=== PATIENT | female | born 1965 | race Caucasian/White ===

== ENCOUNTER 2016-10-19 13:18 | Emergency (ER) | payer BC, OTHER ==
[2016-10-19] MEDS ORDERED: IPRATROPIUM-ALBUTEROL 3 ML NEB INHALATION STA (13:34)
[2016-10-19 13:39] VITALS: RESP 18
--- NOTE | 2016-10-19 13:50 | ED ---
General Adult HPI - General Chief complaint: Shortness of Breath Stated complaint: Abnormal EKG Time Seen by Provider: 10/19/16 13:22 Source: patient Mode of arrival: EMS - History of Present Illness Initial comments: This is a 51-year-old female with a history of lupus and SVT who was presents emergency department from her primary doctor's office for abnormal EKG. The patient states that she has been battling an upper respiratory infection for the last week and a half. She was just started on azithromycin approximately 4 days ago. She states that she has had a persistent cough and chest discomfort that she describes as musculoskeletal and worse with coughing and movement. She states that she's had persistent nasal congestion as well. She went to her primary doctor for further evaluation and they did an EKG and was concerned about her T waves and sent her into the emergency department. The patient states she does not have any palpitations. No lightheadedness. She denies any radiation of the chest pain states that it's directly substernal. She admits to some throat swelling and sore throat. No nausea or vomiting or diarrhea. No other complaints. The patient denies any recent travel or surgeries. No history of PE or DVT. She is not short of breath with exertion. - Related Data Home Medications Medication Instructions Recorded Confirmed DULoxetine HCL [Cymbalta] 60 mg PO DAILY 10/09/15 10/09/15 Ibuprofen [Motrin] 800 mg PO 5XD PRN 10/09/15 10/09/15 tiZANidine HCL [Tizanidine HCl] 4 mg PO BID PRN 10/09/15 10/09/15 Previous Rx's Medication Instructions Recorded HYDROcodone/APAP 5-325MG [[place] 1 tab PO Q6HR PRN #20 tab 10/09/15 5-325] guaiFENesin-Coden 100-10MG/5ML 10 ml PO Q6HR PRN #120 ml 10/19/16 [Robitussin AC] Allergies Allergy/AdvReac Type Severity Reaction Status Date / Time erythromycin base Allergy Rash/Hives Verified 10/09/15 21:10 hepatitis B immune globulin Allergy Unknown Verified 10/09/15 21:10 Childhood morphine Allergy Rash/Hives Verified 10/09/15 21:10 Mushroom Allergy Anaphylaxis Verified 10/09/15 21:10 Review of Systems ROS Statement: Those systems with pertinent positive or pertinent negative responses have been documented in the HPI. ROS Other: All systems not noted in ROS Statement are negative. Past Medical History Past Medical History: Fibromyalgia, Hypertension, Osteoarthritis (OA), Supraventricular Tachycardia (SVT) Additional Past Medical History / Comment(s): lupus History of Any Multi-Drug Resistant Organisms: None Reported Past Surgical History: Cholecystectomy Additional Past Surgical History / Comment(s): arthroscopic knee Past Psychological History: Depression Smoking Status: Former smoker Past Alcohol Use History: None Reported Past Drug Use History: Marijuana General Exam - General Exam Comments Initial Comments: Constitutional: Awake alert Appears comfortable Head: Normocephalic atraumatic Eyes: no conjunctival injection No scleral icterus EOMI ENT: Oropharynx is mildly erythematous without exudate, TMs clear bilaterally, no mucosal edema in the nasal passages. Neck: No JVD Supple Heart: Regular rate rhythm normal S1-S2 no murmurs Lungs: Clear to auscultation bilaterally No wheezing No rales Abdomen: Soft nondistended nontender Extremities: Non edematous DP pulses intact Radial pulses intact Neuro: A&Ox3 No focal neurologic deficits Psych: Appropriate mood and affect Course Vital Signs 10/19/16 10/19/16 10/19/16 13:26 13:49 14:00 Temperature 97.7 F Pulse Rate 58 L 52 L 61 Respiratory 18 Rate Blood Pressure 130/65 O2 Sat by Pulse 96 Oximetry EKG Findings - EKG Comments: EKG Findings:: EKG showing sinus bradycardia with a rate of 54. No abnormal ST segment changes or T-wave inversions. QTC is 424. Other intervals are normal. No ectopy. Medical Decision Making - Medical Decision Making Physical 51-year-old female who presents emergency department for cough, chest pain, and upper respiratory symptoms. Chest x-ray did not show any evidence for pneumonia or any problems with the Claudio mediastinum. The patient was given a breathing treatment with minimal improvement. She states that the chest pain is much worse with coughing and moving. Also worse with palpation. At this time I felt the patient is suffering from some chest wall discomfort and bronchitis. I did give her one dose of Decadron in the ER because she does not tolerate prednisone or Medrol. She has an inhaler at home. She also has taken a course of antibiotics. She can follow-up with her primary doctor for further evaluation. Going to give her some cough medicine as well for home. - Lab Data Result diagrams: 10/19/16 13:47 10/19/16 13:47 Lab Results 10/19/16 10/19/16 10/19/16 Range/Units 13:47 13:47 13:47 WBC 13.2 H (3.8-10.6) k/uL RBC 5.65 H (3.80-5.40) m/uL Hgb 16.6 H (11.4-16.0) gm/dL Hct 48.2 H (34.0-46.0) % MCV 85.4 (80.0-100.0) fL MCH 29.4 (25.0-35.0) pg MCHC 34.4 (31.0-37.0) g/dL RDW 14.2 (11.5-15.5) % Plt Count 293 (150-450) k/uL Neutrophils % 72 % Lymphocytes % 20 % Monocytes % 5 % Eosinophils % 2 % Basophils % 1 % Neutrophils # 9.5 H (1.3-7.7) k/uL Lymphocytes # 2.6 (1.0-4.8) k/uL Monocytes # 0.7 (0-1.0) k/uL Eosinophils # 0.3 (0-0.7) k/uL Basophils # 0.1 (0-0.2) k/uL Sodium 142 (137-145) mmol/L Potassium 4.1 (3.5-5.1) mmol/L Chloride 108 H (98-107) mmol/L Carbon Dioxide 23 (22-30) mmol/L Anion Gap 11 mmol/L BUN 16 (7-17) mg/dL Creatinine 0.60 (0.52-1.04) mg/dL Est GFR (MDRD) Af Amer >60 (>60 ml/min/1.73 sqM) Est GFR (MDRD) Non-Af >60 (>60 ml/min/1.73 sqM) Glucose 95 (74-99) mg/dL Calcium 9.0 (8.4-10.2) mg/dL Magnesium 1.9 (1.6-2.3) mg/dL Total Bilirubin 0.5 (0.2-1.3) mg/dL AST 64 H (14-36) U/L ALT 103 H (9-52) U/L Alkaline Phosphatase 149 H (38-126) U/L Troponin I <0.012 (0.000-0.034) ng/mL Total Protein 6.9 (6.3-8.2) g/dL Albumin 3.8 (3.5-5.0) g/dL Disposition Clinical Impression: Bronchitis, Viral syndrome Disposition: HOME SELF-CARE Condition: Stable Instructions: Bronchiolitis (ED) Prescriptions: guaiFENesin-Coden 100-10MG/5ML [Robitussin AC] 10 ml PO Q6HR PRN #120 ml PRN Reason: Cough Referrals: Rolan Laguerre MD [Primary Care Provider] - 1-2 days
[2016-10-19 13:56] LABS: Basophils # (A) 0.1 k/uL (0-0.2); Basophils % (A) 1 %; CH 29.5; CHCM 34.7; Eosinophils # (A) 0.3 k/uL (0-0.7); Eosinophils % (A) 2 %; HCT 48.2 % (34.0-46.0); HDW 2.83; HGB 16.6 gm/dL (11.4-16.0); Luc # (Auto) 0.19; Luc % (Auto) 1; Lymphocytes # (A) 2.6 k/uL (1.0-4.8); Lymphocytes % (A) 20 %; MCH 29.4 pg (25.0-35.0); MCHC 34.4 g/dL (31.0-37.0); MCV 85.4 fL (80.0-100.0); Mean Platelet Volume 7.1; Monocytes # (A) 0.7 k/uL (0-1.0); Monocytes % (A) 5 %; Neutrophils # (A) 9.5 k/uL (1.3-7.7); Neutrophils % (A) 72 %; RBC 5.65 m/uL (3.80-5.40); RDW 14.2 % (11.5-15.5); WBC 13.2 k/uL (3.8-10.6); WBC (Perox) 12.79
[2016-10-19 14:07] LABS: ALT 103 U/L (9-52); AST 64 U/L (14-36); Alkaline Phosphatase 149 U/L (38-126); Anion Gap 11 mmol/L; Blood Urea Nitrogen 16 mg/dL (7-17); Carbon Dioxide 23 mmol/L (22-30); Chloride 108 mmol/L (98-107); Glucose 95 mg/dL (74-99); Magnesium 1.9 mg/dL (1.6-2.3); Non-African American GFR(MDRD) >60 (>60 ml/min/1.73 sqM); Potassium 4.1 mmol/L (3.5-5.1); Sodium 142 mmol/L (137-145); Total Bilirubin 0.5 mg/dL (0.2-1.3); Total Protein 6.9 g/dL (6.3-8.2)
--- NOTE | 2016-10-19 14:34 | XR ---
EXAMINATION TYPE: XR chest 2V DATE OF EXAM: 10/19/2016 COMPARISON: NONE HISTORY: Shortness of breath TECHNIQUE: Frontal and lateral views of the chest are obtained. FINDINGS: Scattered senescent parenchymal changes noted. Hyperinflation compatible with COPD. No evidence for infiltrate. No evidence for atelectasis. Heart size is stable. Mediastinal structures are stable and grossly unremarkable. No evidence for hilar prominence. Degenerative changes dorsal spine. IMPRESSION: 1. No evidence for acute pulmonary disease.
[2016-10-19] MEDS ORDERED: DEXAMETHASONE SOD PHOSPHATE 4 MG/ML 1 ML VIAL IV STA (14:48)
[2016-10-19 15:01] VITALS: BP 121/58; PULSE 56; TEMP 97.4
== END 2016-10-19 15:06 | disposition home or self-care (01) ==
LOC: EC 13:18
DX: J40 Bronchitis, not specified as acute or chronic (principal); B34.9 Viral infection, unspecified; R07.89 Other chest pain; I10 Essential (primary) hypertension; F32.9 Major depressive disorder, single episode, unspecified; Z87.891 Personal history of nicotine dependence; Z79.899 Other long term (current) drug therapy; Z88.1 Allergy status to other antibiotic agents; Z88.5 Allergy status to narcotic agent; Z91.018 Allergy to other foods; Z88.8 Allergy status to other drugs, medicaments and biological substances
CPT/HCPCS: 36415; 94640; 93005; 80053; 83735; 84484; 85025; 71020; 99285; 96374; J1100

== ENCOUNTER → 2017-01-14 | Outpatient (CLI) | payer OTHER ==
--- NOTE | 2017-01-14 09:17 | US ---
EXAMINATION TYPE: US abdomen limited DATE OF EXAM: 01/14/2017 COMPARISON: NONE CLINICAL HISTORY: M54.5 low back pain. Patient states has multiple lower back palpables x years and n otices pain with pressure; recent 55 lb weight loss At right lower back hypoechoic, oval, lobular areas are noted at patient's palpable and largest area = 3.5 x 3.7 x 1.2cm. At left lower back other palpable, lobular, oval hypoechoic area is also noted = 4.7 x 5.1 x 1.6cm. IMPRESSION: 1. Nonspecific mass as discussed above appears to be solid. Recommend MRI.
== END ==
LOC: RADUSWWP 08:17
PROVIDERS: ATTEND Family Medicine
DX: R22.2 Localized swelling, mass and lump, trunk (principal)

== ENCOUNTER 2017-03-11 10:58 | Emergency (ER) | payer OTHER ==
[2017-03-11] MEDS ORDERED: PANTOPRAZOLE 40 MG/10 ML VIAL IVP STA (11:20)
[2017-03-11] MEDS ORDERED: ONDANSETRON 4 MG/2 ML VIAL IVP STA (11:20)
[2017-03-11] MEDS ORDERED: RX INFO: IV CONTRAST WAS GIVEN 1 EACH MISC MISCELLANE PRN (11:20)
[2017-03-11] MEDS ORDERED: SODIUM CHLORIDE 0.9% 1,000 ML IV STA (11:20)
[2017-03-11] MEDS ORDERED: SODIUM CHLORIDE 0.9% 500 ML IV STA (11:20)
[2017-03-11] MEDS: MORPHINE SULFATE 2 MG/ML SYRINGE IV STA ×2 (11:43→11:44)
[2017-03-11] MEDS ORDERED: KETOROLAC 30 MG/ML 1 ML VIAL IVP STA (12:00)
[2017-03-11 12:03] LABS: Basophils # (A) 0.1 k/uL (0-0.2); Basophils % (A) 1 %; Eosinophils # (A) 0.2 k/uL (0-0.7); Eosinophils % (A) 2 %; HCT 45.1 % (34.0-46.0); Lymphocytes # (A) 0.4 k/uL (1.0-4.8); Lymphocytes % (A) 4 %; MCH 28.9 pg (25.0-35.0); MCHC 33.4 g/dL (31.0-37.0); MCV 86.6 fL (80.0-100.0); Mean Platelet Volume 7.8; Monocytes # (A) 0.5 k/uL (0-1.0); Monocytes % (A) 4 %; Neutrophils # (A) 9.6 k/uL (1.3-7.7); Neutrophils % (A) 89 %; Platelet Count 276 k/uL (150-450); RDW 15.3 % (11.5-15.5); WBC 10.8 k/uL (3.8-10.6)
[2017-03-11 12:21] LABS: ALT 50 U/L (9-52); AST 37 U/L (14-36); Albumin 3.9 g/dL (3.5-5.0); Alkaline Phosphatase 100 U/L (38-126); Amylase 56 U/L (30-110); Anion Gap 10 mmol/L; Blood Urea Nitrogen 16 mg/dL (7-17); Calcium 9.7 mg/dL (8.4-10.2); Carbon Dioxide 25 mmol/L (22-30); Chloride 105 mmol/L (98-107); Glucose 129 mg/dL (74-99); Lipase 111 U/L (23-300); Potassium 3.5 mmol/L (3.5-5.1); Sodium 140 mmol/L (137-145); Total Bilirubin 0.8 mg/dL (0.2-1.3); Total Protein 7.5 g/dL (6.3-8.2)
[2017-03-11 12:56] LABS: Appearance,Urine Clear (Clear); Bilirubin,Urine Negative (Negative); Blood,Urine Negative (Negative); Color,Urine Yellow; Glucose,Urine (UA) Negative (Negative); Granular Casts,Urine 4 /lpf (0); Hyaline Casts,Urine 1 /lpf (0-2); Ketones,Urine Negative (Negative); Leukocyte Esterase,Urine Small (Negative); Mucus,Urine Many /hpf; Nitrite,Urine Negative (Negative); Protein,Urine Trace (Negative); RBC,Urine 1 /hpf (0-5); Specific Gravity,Urine 1.014 (1.001-1.035); Squamous Epithelial Cell,Urine 6 /hpf (0-4); Urobilinogen,Urine <2.0 mg/dL (<2.0); WBC,Urine 4 /hpf (0-5)
--- NOTE | 2017-03-11 13:08 | ED ---
General Adult HPI - General Chief complaint: Abdominal Pain Stated complaint: Abdominal pain Time Seen by Provider: 03/11/17 11:12 Source: patient, RN notes reviewed, old records reviewed Mode of arrival: ambulatory Limitations: no limitations - History of Present Illness Initial comments: This is a 51-year-old female to the ER for evaluation today. This patient presents today for evaluation regarding this to develop pain, patient has history of gallbladder surgery, history ago abdominal disease. History of chronic abdominal pain and currently being treated for ulcers. No fevers. Patient severe nausea no vomiting. Severe epigastric abdominal.. Patient is no family members with similar symptoms, no modifying factors for pain at home.0 - Related Data Home Medications Medication Instructions Recorded Confirmed Alogliptin Benzoate [Alogliptin] 25 mg PO DAILY 10/19/16 03/11/17 Atorvastatin [Lipitor] 20 mg PO DAILY 10/19/16 03/11/17 metFORMIN HCL [Glucophage] 1,000 mg PO BID 10/19/16 03/11/17 Albuterol Inhaler [Ventolin Hfa 2 puff INHALATION RT-Q6H PRN 03/11/17 03/11/17 Inhaler] Escitalopram [Lexapro] 10 mg PO DAILY 03/11/17 03/11/17 Famotidine 40 mg PO DAILY 03/11/17 03/11/17 Losartan/Hydrochlorothiazide 1 tab PO DAILY 03/11/17 03/11/17 [Losartan-Hctz 100-25 mg Tab] Omeprazole 40 mg PO DAILY 03/11/17 03/11/17 Allergies Allergy/AdvReac Type Severity Reaction Status Date / Time erythromycin base Allergy Rash/Hives Verified 03/11/17 11:13 hepatitis B immune globulin Allergy Unknown Verified 03/11/17 11:13 Childhood morphine Allergy Rash/Hives Verified 03/11/17 11:13 Mushroom Allergy Anaphylaxis Verified 03/11/17 11:13 Review of Systems ROS Statement: Those systems with pertinent positive or pertinent negative responses have been documented in the HPI. ROS Other: All systems not noted in ROS Statement are negative. Past Medical History Past Medical History: Diabetes Mellitus, Fibromyalgia, Hypertension, Osteoarthritis (OA), Supraventricular Tachycardia (SVT) Additional Past Medical History / Comment(s): lupus History of Any Multi-Drug Resistant Organisms: None Reported Past Surgical History: Cholecystectomy, Orthopedic Surgery Additional Past Surgical History / Comment(s): arthroscopic knee Past Psychological History: Depression Smoking Status: Former smoker Past Alcohol Use History: None Reported Past Drug Use History: Marijuana General Exam Limitations: no limitations General appearance: alert, in no apparent distress, obese Head exam: Present: atraumatic, normocephalic, normal inspection Eye exam: Present: normal appearance, PERRL, EOMI. Absent: scleral icterus, conjunctival injection, periorbital swelling ENT exam: Present: normal exam, mucous membranes moist Neck exam: Present: normal inspection. Absent: tenderness, meningismus, lymphadenopathy Respiratory exam: Present: normal lung sounds bilaterally. Absent: respiratory distress, wheezes, rales, rhonchi, stridor Cardiovascular Exam: Present: regular rate, normal rhythm, normal heart sounds. Absent: systolic murmur, diastolic murmur, rubs, gallop, clicks GI/Abdominal exam: Present: soft, normal bowel sounds. Absent: distended, tenderness, guarding, rebound, rigid Extremities exam: Present: normal inspection, full ROM, normal capillary refill. Absent: tenderness, pedal edema, joint swelling, calf tenderness Back exam: Present: normal inspection Neurological exam: Present: alert, oriented X3, CN II-XII intact Psychiatric exam: Present: normal affect, normal mood Skin exam: Present: warm, dry, intact, normal color. Absent: rash Course Vital Signs 03/11/17 10:59 Temperature 97.4 F L Pulse Rate 95 Respiratory 18 Rate Blood Pressure 143/92 O2 Sat by Pulse 95 Oximetry - Reevaluation(s) Reevaluation #1: 03/11/17 13:07 Patient does have adequate pain control Medical Decision Making - Medical Decision Making 51 female ER for evaluation regarding abdominal pain, severe epigastric abdominal pain. Patient has pain control here in the ER lab work and CT are negative. Patient will continue to follow up on an outpatient basis regarding ulcer, likely need of upper and lower GI - Lab Data Result diagrams: 03/11/17 11:48 03/11/17 11:48 Lab Results 03/11/17 03/11/17 03/11/17 Range/Units 11:48 11:48 11:48 WBC 10.8 H (3.8-10.6) k/uL RBC 5.20 (3.80-5.40) m/uL Hgb 15.0 (11.4-16.0) gm/dL Hct 45.1 (34.0-46.0) % MCV 86.6 (80.0-100.0) fL MCH 28.9 (25.0-35.0) pg MCHC 33.4 (31.0-37.0) g/dL RDW 15.3 (11.5-15.5) % Plt Count 276 (150-450) k/uL Neutrophils % 89 % Lymphocytes % 4 % Monocytes % 4 % Eosinophils % 2 % Basophils % 1 % Neutrophils # 9.6 H (1.3-7.7) k/uL Lymphocytes # 0.4 L (1.0-4.8) k/uL Monocytes # 0.5 (0-1.0) k/uL Eosinophils # 0.2 (0-0.7) k/uL Basophils # 0.1 (0-0.2) k/uL Sodium 140 (137-145) mmol/L Potassium 3.5 (3.5-5.1) mmol/L Chloride 105 (98-107) mmol/L Carbon Dioxide 25 (22-30) mmol/L Anion Gap 10 mmol/L BUN 16 (7-17) mg/dL Creatinine 0.80 (0.52-1.04) mg/dL Est GFR (MDRD) Af Amer >60 (>60 ml/min/1.73 sqM) Est GFR (MDRD) Non-Af >60 (>60 ml/min/1.73 sqM) Glucose 129 H (74-99) mg/dL Plasma Lactic Acid Juan Jose 1.1 (0.7-2.0) mmol/L Calcium 9.7 (8.4-10.2) mg/dL Total Bilirubin 0.8 (0.2-1.3) mg/dL AST 37 H (14-36) U/L ALT 50 (9-52) U/L Alkaline Phosphatase 100 (38-126) U/L Total Protein 7.5 (6.3-8.2) g/dL Albumin 3.9 (3.5-5.0) g/dL Amylase 56 (30-110) U/L Lipase 111 (23-300) U/L Urine Color Urine Appearance (Clear) Urine pH (5.0-8.0) Ur Specific [place] (1.001-1.035) Urine Protein (Negative) Urine Glucose (UA) (Negative) Urine Ketones (Negative) Urine Blood (Negative) Urine Nitrite (Negative) Urine Bilirubin (Negative) Urine Urobilinogen (<2.0) mg/dL Ur Leukocyte Esterase (Negative) Urine RBC (0-5) /hpf Urine WBC (0-5) /hpf Ur Squamous Epith Cells (0-4) /hpf Hyaline Casts (0-2) /lpf Granular Casts (0) /lpf Urine Mucus (None) /hpf 03/11/17 Range/Units 12:39 WBC (3.8-10.6) k/uL RBC (3.80-5.40) m/uL Hgb (11.4-16.0) gm/dL Hct (34.0-46.0) % MCV (80.0-100.0) fL MCH (25.0-35.0) pg MCHC (31.0-37.0) g/dL RDW (11.5-15.5) % Plt Count (150-450) k/uL Neutrophils % % Lymphocytes % % Monocytes % % Eosinophils % % Basophils % % Neutrophils # (1.3-7.7) k/uL Lymphocytes # (1.0-4.8) k/uL Monocytes # (0-1.0) k/uL Eosinophils # (0-0.7) k/uL Basophils # (0-0.2) k/uL Sodium (137-145) mmol/L Potassium (3.5-5.1) mmol/L Chloride (98-107) mmol/L Carbon Dioxide (22-30) mmol/L Anion Gap mmol/L BUN (7-17) mg/dL Creatinine (0.52-1.04) mg/dL Est GFR (MDRD) Af Amer (>60 ml/min/1.73 sqM) Est GFR (MDRD) Non-Af (>60 ml/min/1.73 sqM) Glucose (74-99) mg/dL Plasma Lactic Acid Juan Jose (0.7-2.0) mmol/L Calcium (8.4-10.2) mg/dL Total Bilirubin (0.2-1.3) mg/dL AST (14-36) U/L ALT (9-52) U/L Alkaline Phosphatase (38-126) U/L Total Protein (6.3-8.2) g/dL Albumin (3.5-5.0) g/dL Amylase (30-110) U/L Lipase (23-300) U/L Urine Color Yellow Urine Appearance Clear (Clear) Urine pH 7.0 (5.0-8.0) Ur Specific [place] 1.014 (1.001-1.035) Urine Protein Trace H (Negative) Urine Glucose (UA) Negative (Negative) Urine Ketones Negative (Negative) Urine Blood Negative (Negative) Urine Nitrite Negative (Negative) Urine Bilirubin Negative (Negative) Urine Urobilinogen <2.0 (<2.0) mg/dL Ur Leukocyte Esterase Small H (Negative) Urine RBC 1 (0-5) /hpf Urine WBC 4 (0-5) /hpf Ur Squamous Epith Cells 6 H (0-4) /hpf Hyaline Casts 1 (0-2) /lpf Granular Casts 4 (0) /lpf Urine Mucus Many H (None) /hpf - Radiology Data Radiology results: report reviewed (CT abdomen and pelvis is negative), image reviewed Disposition Clinical Impression: Abdominal pain Disposition: HOME SELF-CARE Condition: Good Instructions: Abdominal Pain (ED) Referrals: Rolan Laguerre MD [Primary Care Provider] - 1-2 days
--- NOTE | 2017-03-11 14:12 | CT ---
EXAMINATION TYPE: CT abdomen pelvis w con DATE OF EXAM: 03/11/2017 COMPARISON: NONE HISTORY: Abdominal pain CT DLP: 1767 mGycm Automated exposure control for dose reduction was used. TECHNIQUE: Helical acquisition of images from the lung bases through the pelvis have been completed. CONTRAST: Performed without Oral Contrast and with IV Contrast, patient injected with 100 ml mL of Omnipaque 30 0. FINDINGS: LUNG BASES: Subpleural pulmonary nodule present in the right lower lobe axial image 9 measuring 6 to 7 mm with smooth margins. There is no pleural or pericardial effusion. AORTA: No significant abnormality is appreciated. LIVER/GB: Patient is post cholecystectomy, surgical clip present anterior to the left lobe of the servando er, the liver shows low attenuation likely due to hepatic steatosis and liver is enlarged PANCREAS: No significant abnormality is seen. SPLEEN: No significant abnormality is seen. ADRENALS: No significant abnormality is seen. KIDNEYS: Nonobstructive upper pole left renal calcification measures 9 mm. No ureteral calcification is evident. REPRODUCTIVE ORGANS: No significant abnormality is seen. Surgical clip present in the cul-de-sac. BOWEL: No significant abnormality is seen. There is a small umbilical hernia present containing fat. No evident appendicitis. FREE AIR: No Free Air visible. ASCITES: None visible. PELVIC ADENOPATHY: None visualized. RETROPERITONEAL ADENOPATHY: No Retroperitoneal Adenopathy visible. URINARY BLADDER: No significant abnormality is seen. OSSEOUS STRUCTURES: Degenerative disc disease noted in the lower lumbar spine, is vacuum phenomenon is present at L4-5, L5-S1. IMPRESSION: POSTOP CHANGES. NONOBSTRUCTIVE LEFT NEPHROLITHIASIS. HEPATIC STEATOSIS. INDETERMINATE PULMONARY NODUL E, FOLLOW-UP RECOMMENDED IN 6-12 MONTHS. ADDITIONAL FINDINGS ABOVE.
[2017-03-11] MEDS ORDERED: HYDROcodone/APAP 5-325MG 1 EACH TAB PO STA (14:29)
[2017-03-11 14:38] VITALS: BP 128/68; PULSE 69; RESP 16; TEMP 97.8
== END 2017-03-11 14:37 | disposition home or self-care (01) ==
LOC: EC 10:58
DX: R10.13 Epigastric pain (principal); R11.0 Nausea; K25.9 Gastric ulcer, unspecified as acute or chronic, without hemorrhage or perforation; I10 Essential (primary) hypertension; E11.9 Type 2 diabetes mellitus without complications; F32.9 Major depressive disorder, single episode, unspecified; E66.9 Obesity, unspecified; Z87.891 Personal history of nicotine dependence; Z79.84 Long term (current) use of oral hypoglycemic drugs; Z79.899 Other long term (current) drug therapy; Z88.1 Allergy status to other antibiotic agents; Z88.5 Allergy status to narcotic agent; Z88.7 Allergy status to serum and vaccine; Z91.018 Allergy to other foods; Z90.49 Acquired absence of other specified parts of digestive tract; Z68.31 Body mass index [BMI] 31.0-31.9, adult; Z53.8 Procedure and treatment not carried out for other reasons
CPT/HCPCS: 36415; 80053; 82150; 83605; 83690; 85025; 81001; 87086; 74177; 99284; 96374; 96375 ×2; 96361 ×3; Q9967; J2405; J1885; C9113

== ENCOUNTER 2017-03-22 08:44 | Emergency (ER) | payer OTHER ==
[2017-03-22 08:53] VITALS: BP 131/81; PULSE 61; RESP 20; TEMP 97.9
[2017-03-22] MEDS ORDERED: methylPREDNISolone SOD SUCCI 125 MG/2 ML VIAL IM STA (09:07)
[2017-03-22] MEDS ORDERED: hydrOXYzine HCL 25 MG TAB PO STA (09:07)
--- NOTE | 2017-03-22 09:11 | ED ---
General Adult HPI - General Chief complaint: Skin/Abscess/Foreign Body Stated complaint: Rash Time Seen by Provider: 03/22/17 09:02 Source: patient, RN notes reviewed Mode of arrival: ambulatory Limitations: no limitations - History of Present Illness Initial comments: 51-year-old female presents to the emergency department with a chief complaint of an itchy red rash. Patient had this rash for the past 2-3 days. It originally started on Tuesday. She went to the urgent care and they prescribed her Medrol Dosepak but she cannot take that she has not had any steroids. She states she's had only been taking Benadryl. She states when she takes steroids and Effexor differently she did have a shot of steroids but she can't take any oral steroids. She states she is here because she continues to have the rash does not seem to be improving. She denies any new soaps or detergents at home. She denies any. She states her facial swelling that she had when it initially started is gone but she continues to have this rash. She is being tested for viral syndrome but she just needs something to help with itching and a steroid injection to help hopefully improve her symptoms. She denies any fever chills with this. She states she has had some mild congestion which she is on Singulair for. Patient denies any recent fever, chills, shortness of breath, chest pain, back pain, abdominal pain, nausea vomiting, numbness or tingling, dysuria or hematuria, constipation or diarrhea, headaches or visual changes, or any other current symptoms. - Related Data Home Medications Medication Instructions Recorded Confirmed Alogliptin Benzoate [Alogliptin] 25 mg PO DAILY 10/19/16 03/22/17 Atorvastatin [Lipitor] 20 mg PO DAILY 10/19/16 03/22/17 metFORMIN HCL [Glucophage] 1,000 mg PO BID 10/19/16 03/22/17 Albuterol Inhaler [Ventolin Hfa 2 puff INHALATION RT-Q6H PRN 03/11/17 03/22/17 Inhaler] Escitalopram [Lexapro] 10 mg PO DAILY 03/11/17 03/22/17 Famotidine 40 mg PO DAILY 03/11/17 03/22/17 Losartan/Hydrochlorothiazide 1 tab PO DAILY 03/11/17 03/22/17 [Losartan-Hctz 100-25 mg Tab] Omeprazole 40 mg PO DAILY 03/11/17 03/22/17 Previous Rx's Medication Instructions Recorded HYDROcodone/APAP 5-325MG [[place] 1 tab PO Q6HR PRN #30 tab 03/11/17 5-325] Ondansetron Odt [Zofran ODT] 4 mg PO Q8HR PRN #30 tab 03/11/17 hydrOXYzine HCL [Atarax] 25 mg PO TID PRN #20 tab 03/22/17 Allergies Allergy/AdvReac Type Severity Reaction Status Date / Time erythromycin base Allergy Rash/Hives Verified 03/22/17 09:00 hepatitis B immune globulin Allergy Unknown Verified 03/22/17 09:00 Childhood morphine Allergy Rash/Hives Verified 03/22/17 09:00 Mushroom Allergy Anaphylaxis Verified 03/22/17 09:00 Review of Systems ROS Statement: Those systems with pertinent positive or pertinent negative responses have been documented in the HPI. ROS Other: All systems not noted in ROS Statement are negative. Past Medical History Past Medical History: Diabetes Mellitus, Fibromyalgia, Hypertension, Osteoarthritis (OA), Supraventricular Tachycardia (SVT) Additional Past Medical History / Comment(s): lupus History of Any Multi-Drug Resistant Organisms: None Reported Past Surgical History: Cholecystectomy, Orthopedic Surgery Additional Past Surgical History / Comment(s): arthroscopic knee Past Psychological History: Depression Smoking Status: Former smoker Past Alcohol Use History: None Reported Past Drug Use History: Marijuana General Exam Limitations: no limitations General appearance: alert, in no apparent distress Neck exam: Present: normal inspection. Absent: tenderness, meningismus, lymphadenopathy Respiratory exam: Present: normal lung sounds bilaterally. Absent: respiratory distress, wheezes, rales, rhonchi, stridor Cardiovascular Exam: Present: regular rate, normal rhythm, normal heart sounds. Absent: systolic murmur, diastolic murmur, rubs, gallop, clicks Extremities exam: Present: normal inspection, full ROM, normal capillary refill. Absent: tenderness, pedal edema, joint swelling, calf tenderness Back exam: Present: normal inspection Neurological exam: Present: alert, oriented X3 Psychiatric exam: Present: normal affect, normal mood Skin exam: Present: warm, dry, intact, rash, urticaria (Diffuse) Course Vital Signs 03/22/17 08:50 Temperature 97.9 F Pulse Rate 61 Respiratory 20 Rate Blood Pressure 131/81 O2 Sat by Pulse 99 Oximetry Medical Decision Making - Medical Decision Making 51-year-old female presents emergency department with what appears to be an urticaria. At this time we discussed investigating the source. We did discuss with her shot of Solu-Medrol. She cannot take oral steroids for home she states. We will also start her on Atarax to help with itching. We did discuss assisted. We discussed follow-up return parameters all questions. Patient family stated the Dimitris management this plan. All questions have been answered. This time the patient will be discharged. Disposition Clinical Impression: Urticaria Disposition: HOME SELF-CARE Condition: Stable Instructions: Urticaria (ED) Additional Instructions: Please use medication as discussed. Please follow up with family doctor if symptoms have not improved over the next two days. Please return to the emergency room if your symptoms increase or worsen or for any other concerns. Prescriptions: hydrOXYzine HCL [Atarax] 25 mg PO TID PRN #20 tab PRN Reason: Itching Referrals: Rolan Laguerre MD [Primary Care Provider] - 1-2 days Time of Disposition: 09:10
== END 2017-03-22 09:27 | disposition home or self-care (01) ==
LOC: EC 08:44
DX: L50.9 Urticaria, unspecified (principal); R09.81 Nasal congestion; E11.9 Type 2 diabetes mellitus without complications; I10 Essential (primary) hypertension; F32.9 Major depressive disorder, single episode, unspecified; Z87.891 Personal history of nicotine dependence; Z79.84 Long term (current) use of oral hypoglycemic drugs; Z79.899 Other long term (current) drug therapy; Z88.5 Allergy status to narcotic agent; Z88.1 Allergy status to other antibiotic agents; Z91.018 Allergy to other foods; Z88.8 Allergy status to other drugs, medicaments and biological substances
CPT/HCPCS: 99282; 96372; J2930

== ENCOUNTER → 2018-02-03 | Outpatient (CLI) | payer OTHER ==
--- NOTE | 2018-02-03 07:45 | US ---
EXAMINATION TYPE: US liver DATE OF EXAM: 02/03/2018 COMPARISON: NONE CLINICAL HISTORY: K80.50 CALCULUS BILE DUCT W/O CHOLANGITIS W/O OBSTRUCTION. Cholecystectomy 2011. Na usea for 1 month. RUQ pain EXAM MEASUREMENTS: Liver Length: 20.0 cm Gallbladder Wall: Surgically absent CBD: 0.4 cm Right Kidney: 11.9 x 4.0 x 4.6 cm Pancreas: Obscured by bowel gas Liver: enlarged . There is increased echogenicity of the hepatic parenchyma with diminished visualiz ation of the portal triads most commonly relating to hepatic steatosis and limiting evaluation for un derlying hepatic masses. Gallbladder: Surgically absent Evidence for sonographic Soriano's sign: no CBD: appears wnl as visualized Right Kidney: no evidence of hydronephrosis or mass IMPRESSION: 1. Surgical absence of the gallbladder. No intrahepatic or extrahepatic biliary ductal dilatation. 2. Findings suggesting mild degree hepatic steatosis. Correlate with liver function tests.
== END | disposition home or self-care (01) ==
LOC: RADUSWWP 06:55
PROVIDERS: ATTEND Family Medicine
DX: Z09 Encounter for follow-up examination after completed treatment for conditions other than malignant neoplasm (principal); Z90.49 Acquired absence of other specified parts of digestive tract; Z87.19 Personal history of other diseases of the digestive system
CPT/HCPCS: 76705

== ENCOUNTER 2019-04-05 16:31 | Inpatient (IN) | payer MEDICARE, OTHER ==
[2019-04-05] MEDS ORDERED: PANTOPRAZOLE 40 MG/10 ML VIAL IVP STA (17:20)
[2019-04-05] MEDS ORDERED: SODIUM CHLORIDE 0.9% 500 ML 500 ML IV STA (17:20)
[2019-04-05] MEDS ORDERED: SODIUM CHLORIDE 0.9% 1,000 ML IV STA (17:20)
[2019-04-05] MEDS ORDERED: ONDANSETRON 4 MG/2 ML VIAL IVP STA (17:20)
--- NOTE | 2019-04-05 17:20 | ED ---
Abdominal Pain HPI - General Chief Complaint: Abdominal Pain Stated Complaint: NVD, Abd pain Time Seen by Provider: 04/05/19 17:06 Source: patient, RN notes reviewed, old records reviewed Mode of arrival: ambulatory Limitations: no limitations - History of Present Illness Initial Comments: This is a 53-year-old female DF for evaluation she spoke them today for evaluation regards to persistent nausea vomiting and diarrhea with abdominal pain. Patient is having foul-smelling yellowish diarrhea patient has consented DF for evaluation of abdominal pain for primary care patient presents with persistent abdominal pain significant diarrhea. No fevers MD Complaint: abdominal pain -: days(s) Location: diffuse, epigastric, suprapubic Radiation: epigastric, suprapubic Migration to: no migration Severity: moderate Severity scale (1-10): 7 Quality: stabbing, sharp Consistency: constant Improves With: nothing Worsens With: nothing Associated Symptoms: nausea, vomiting, diarrhea - Related Data Home Medications Medication Instructions Recorded Confirmed Alogliptin Benzoate [Alogliptin] 25 mg PO DAILY 10/19/16 03/15/18 metFORMIN HCL [Glucophage] 500 mg PO BID 10/19/16 03/15/18 Albuterol Inhaler [Ventolin Hfa 2 puff INHALATION RT-Q6H PRN 03/11/17 03/15/18 Inhaler] Escitalopram [Lexapro] 10 mg PO DAILY 03/11/17 03/15/18 Famotidine 40 mg PO DAILY 03/11/17 03/15/18 Cholecalciferol [Vitamin D3] 5,000 unit PO DAILY 03/15/18 03/15/18 Losartan/Hydrochlorothiazide 1 each PO DAILY 03/15/18 03/15/18 [Hyzaar 100-25 Tablet] Metoprolol Succinate [Toprol XL] 100 mg PO DAILY 03/15/18 03/15/18 Allergies Allergy/AdvReac Type Severity Reaction Status Date / Time erythromycin base Allergy Rash/Hives Verified 04/05/19 16:33 hepatitis B immune globulin Allergy Unknown Verified 04/05/19 16:33 Childhood morphine Allergy Rash/Hives Verified 04/05/19 16:33 Mushroom Allergy Anaphylaxis Verified 04/05/19 16:33 Review of Systems ROS Statement: Those systems with pertinent positive or pertinent negative responses have been documented in the HPI. ROS Other: All systems not noted in ROS Statement are negative. Past Medical History Past Medical History: Diabetes Mellitus, Fibromyalgia, Hyperlipidemia, Hypertension, Osteoarthritis (OA), Supraventricular Tachycardia (SVT) Additional Past Medical History / Comment(s): lupus, OCCASIONAL . SVT History of Any Multi-Drug Resistant Organisms: None Reported Past Surgical History: Cholecystectomy, Orthopedic Surgery, Tubal Ligation Additional Past Surgical History / Comment(s): arthroscopic left knee Past Anesthesia/Blood Transfusion Reactions: Motion Sickness Past Psychological History: Depression Smoking Status: Former smoker Past Alcohol Use History: None Reported Past Drug Use History: Marijuana - Past Family History Mother Family Medical History: Cancer Father Family Medical History: Cancer General Exam Limitations: no limitations General appearance: alert, in no apparent distress Head exam: Present: atraumatic, normocephalic, normal inspection Eye exam: Present: normal appearance, PERRL, EOMI. Absent: scleral icterus, conjunctival injection, periorbital swelling ENT exam: Present: normal exam, mucous membranes moist Neck exam: Present: normal inspection. Absent: tenderness, meningismus, lymphadenopathy Respiratory exam: Present: normal lung sounds bilaterally. Absent: respiratory distress, wheezes, rales, rhonchi, stridor Cardiovascular Exam: Present: regular rate, normal rhythm, normal heart sounds. Absent: systolic murmur, diastolic murmur, rubs, gallop, clicks GI/Abdominal exam: Present: soft, tenderness (epigastric), normal bowel sounds. Absent: distended, guarding, rebound, rigid Extremities exam: Present: normal inspection, full ROM, normal capillary refill. Absent: tenderness, pedal edema, joint swelling, calf tenderness Back exam: Present: normal inspection Neurological exam: Present: alert, oriented X3, CN II-XII intact Psychiatric exam: Present: normal affect, normal mood Skin exam: Present: warm, dry, intact, normal color. Absent: rash Course Vital Signs 04/05/19 04/05/19 16:34 20:15 Temperature 98.3 F 97.4 F L Pulse Rate 72 60 Respiratory 18 18 Rate Blood Pressure 144/85 132/70 O2 Sat by Pulse 98 96 Oximetry - Reevaluation(s) Reevaluation #1: 04/05/19 17:20 medical record is reviewed - Consultations Consultation #1: spoke w Dr Jaspal vasquez for admission Medical Decision Making - Medical Decision Making 53 female DF for evaluation of persistent nausea vomiting and diarrhea patient does have significant diarrheal illness, patient will be admitted for symptom atically therapy, we'll await C. diff result - Lab Data Result diagrams: 04/05/19 17:29 04/05/19 17:29 Lab Results 04/05/19 04/05/19 04/05/19 Range/Units 17:29 17:29 17:29 WBC 10.2 (3.8-10.6) k/uL RBC 5.90 H (3.80-5.40) m/uL Hgb 16.8 H (11.4-16.0) gm/dL Hct 49.0 H (34.0-46.0) % MCV 82.9 (80.0-100.0) fL MCH 28.5 (25.0-35.0) pg MCHC 34.3 (31.0-37.0) g/dL RDW 14.4 (11.5-15.5) % Plt Count 275 (150-450) k/uL Neutrophils % 78 % Lymphocytes % 10 % Monocytes % 6 % Eosinophils % 1 % Basophils % 2 % Neutrophils # 8.0 H (1.3-7.7) k/uL Lymphocytes # 1.0 (1.0-4.8) k/uL Monocytes # 0.6 (0-1.0) k/uL Eosinophils # 0.1 (0-0.7) k/uL Basophils # 0.2 (0-0.2) k/uL Sodium 138 (137-145) mmol/L Potassium 3.6 (3.5-5.1) mmol/L Chloride 105 (98-107) mmol/L Carbon Dioxide 21 L (22-30) mmol/L Anion Gap 12 mmol/L BUN 18 H (7-17) mg/dL Creatinine 0.70 (0.52-1.04) mg/dL Est GFR (CKD-EPI)AfAm >90 (>60 ml/min/1.73 sqM) Est GFR (CKD-EPI)NonAf >90 (>60 ml/min/1.73 sqM) Glucose 111 H (74-99) mg/dL Plasma Lactic Acid Juan Jose 1.1 (0.7-2.0) mmol/L Calcium 9.3 (8.4-10.2) mg/dL Total Bilirubin 0.9 (0.2-1.3) mg/dL AST 62 H (14-36) U/L ALT 54 H (4-34) U/L Alkaline Phosphatase 103 (38-126) U/L Total Protein 7.6 (6.3-8.2) g/dL Albumin 4.1 (3.5-5.0) g/dL Amylase 51 (30-110) U/L Lipase 128 (23-300) U/L - Radiology Data Radiology results: report reviewed (CT abd pelvis negative diarrheal illness), image reviewed Disposition Clinical Impression: Abdominal pain, Nausea and vomiting, Gastroenteritis Narrative: r/o C Diff Disposition: ADMITTED IP TO THIS [facility] Condition: Fair Is patient prescribed a controlled substance at d/c from ED?: No Referrals: Rolan Laguerre MD [Primary Care Provider] - 1-2 days
[2019-04-05] MEDS ORDERED: HYDROmorphone 1 MG/ML 1 ML SYRINGE IVP STA (17:21)
[2019-04-05] MEDS: SODIUM CHLORIDE 0.9% 1,000 ML IV STA (17:54)
[2019-04-05 17:55] LABS: Basophils # (A) 0.2 k/uL (0-0.2); Basophils % (A) 2 %; Eosinophils # (A) 0.1 k/uL (0-0.7); Eosinophils % (A) 1 %; HGB 16.8 gm/dL (11.4-16.0); Lymphocytes % (A) 10 %; MCH 28.5 pg (25.0-35.0); MCHC 34.3 g/dL (31.0-37.0); MCV 82.9 fL (80.0-100.0); Mean Platelet Volume 8.3; Monocytes # (A) 0.6 k/uL (0-1.0); Monocytes % (A) 6 %; Neutrophils % (A) 78 %; Platelet Count 275 k/uL (150-450); RDW 14.4 % (11.5-15.5); WBC 10.2 k/uL (3.8-10.6)
[2019-04-05 18:02] LABS: ALT 54 U/L (4-34); AST 62 U/L (14-36); African American GFR (CKD) >90 (>60 ml/min/1.73 sqM); Albumin 4.1 g/dL (3.5-5.0); Alkaline Phosphatase 103 U/L (38-126); Amylase 51 U/L (30-110); Anion Gap 12 mmol/L; Blood Urea Nitrogen 18 mg/dL (7-17); Calcium 9.3 mg/dL (8.4-10.2); Carbon Dioxide 21 mmol/L (22-30); Chloride 105 mmol/L (98-107); Glucose 111 mg/dL (74-99); Non-African American GFR(CKD) >90 (>60 ml/min/1.73 sqM); Potassium 3.6 mmol/L (3.5-5.1); Sodium 138 mmol/L (137-145); Total Bilirubin 0.9 mg/dL (0.2-1.3); Total Protein 7.6 g/dL (6.3-8.2)
--- NOTE | 2019-04-05 20:57 | CT ---
EXAMINATION TYPE: CT abdomen pelvis w con DATE OF EXAM: 04/05/2019 COMPARISON: 03/11/2017 HISTORY: 53-year-old female Vomiting and diarrhea x3 days TECHNIQUE: Contiguous axial scanning of the abdomen and pelvis following administration of 100 ml Iso pablo 300 IV contrast. Delayed images through the kidneys and coronal/sagittal reconstructions perform ed. CT DLP: 2172 mGycm Automated exposure control for dose reduction was used. FINDINGS: Heart normal size without pericardial effusion. A 5 mm posterior right basilar pulmonary nodule uncha nged from 03/11/2017 compatible with a benign etiology. Liver enlarged at 20.7 cm craniocaudal. No focal liver lesion or biliary ductal dilatation. Portal ve nous system is patent. Cholecystectomy clips. Adrenal glands and spleen appear within normal limits. There is vague hypodensity within the left lateral aspect of the pancreatic head, refer to axial imag e 34, possible partial volume averaging. Short interval follow-up recommended to exclude the possibil ity of a small early mass here. 7 mm nonobstructive left renal calculus. Right kidney appears satisfactory. Prominent jyotsna hepatic lymph node measures 1 cm. Additional scattered prominent but nonenlarged mesenteric lymph nodes. There is some scattered liquid stool throughout the colon and some mild wall thickening along the asc ending colon. Small fatty umbilical hernia. Bladder not distended. Uterus anteverted. Both ovaries are visualized. Surgical clip retained within the cul-de-sac. No abnormal fluid collection in the pelvis or pelvic lymphadenopathy. Bones: Degenerative changes at the SI joints and mild at the hips. Additional degenerative disc disea se lower lumbar spine. Facet arthropathy lower lumbar spine. IMPRESSION: 1. SCATTERED LIQUID STOOL THROUGHOUT THE COLON SUGGESTS DIARRHEAL STATE. THERE IS MILD WALL THICKENIN G ALONG THE ASCENDING COLON. CORRELATE FOR NONSPECIFIC MILD COLITIS. 2. 7 MM NONOBSTRUCTIVE LEFT RENAL CALCULUS. 3. A VAGUE HYPODENSITY WITHIN THE LEFT LATERAL ASPECT OF THE PANCREATIC HEAD, POSSIBLE PARTIAL VOLUME AVERAGING. FOLLOW-UP IN 6-8 WEEKS TO EXCLUDE THE POSSIBILITY OF AN EARLY SMALL SOLID MASS. 4. HEPATOMEGALY (20.7 CM) . 5. SMALL FATTY HERNIA.
[2019-04-05 22:12] LABS: Appearance,Urine Clear (Clear); Bilirubin,Urine Negative (Negative); Blood,Urine Negative (Negative); Color,Urine Yellow; Glucose,Urine (UA) 4+ (Negative); Leukocyte Esterase,Urine Negative (Negative); Nitrite,Urine Negative (Negative); Protein,Urine Trace (Negative); Urobilinogen,Urine <2.0 mg/dL (<2.0)
[2019-04-05 22:27] LABS: Ketones,Urine 2+ (Negative); Specific Gravity,Urine >1.050 (1.001-1.035)
[2019-04-05] MEDS: HYDROmorphone 1 MG/ML 1 ML SYRINGE IVP PRN (23:26)
[2019-04-06] MEDS: ONDANSETRON 4 MG/2 ML VIAL IVP PRN ×3 (01:04→20:13)
[2019-04-06] MEDS ORDERED: ALBUTEROL NEBULIZED 2.5 MG/3 ML INHALATION PRN (09:56)
[2019-04-06] MEDS: VITAMIN E (DL,TOCOPHERYL ACET) 400 UNIT CAP PO SCH (10:36)
[2019-04-06] MEDS: HYDROmorphone 1 MG/ML 1 ML SYRINGE IVP PRN ×3 (10:36→21:40)
[2019-04-06] MEDS: ENOXAPARIN 40 MG/0.4 ML SYRINGE SQ SCH (10:36)
[2019-04-06] MEDS: METOPROLOL SUCCINATE (ER) 100 MG TAB.ER.24H PO SCH (10:36)
[2019-04-06] MEDS: FAMOTIDINE 20 MG TAB PO SCH (10:36)
[2019-04-06] MEDS: LINAGLIPTIN 5 MG TABLET PO SCH (10:36)
[2019-04-06] MEDS: ESCITALOPRAM 20 MG TAB PO SCH (10:36)
[2019-04-06] MEDS: SODIUM CHLORIDE 0.9% 1,000 ML IV STA (15:56)
--- NOTE | 2019-04-06 20:05 | P.HPIM ---
History of Present Illness H&P Date: 04/06/19 Presenting complaint: Nausea vomiting diarrhea History of presenting complaint: This is a very pleasant 53-year-old patient of Dr. Laguerre. Chronic stable medical conditions include diabetes, fibromyalgia, hypertension, hyperlipidemia, osteoarthritis, lupus. 4 days ago patient started off with having nausea abdominal discomfort related to a severe bouts of vomiting diarrhea abdominal pain. No fever no chills. Became rather exhausted tired rundown. Decided to present to the ER. Started on IV fluids. Patient had eaten some discharge from outside include some meat and did not feel that the meat was tasting right. Patient's last vomiting was yesterday and that he was yesterday do patient feels weak tired rundown. Patient about a year ago is had EGD and colonoscopic that was unremarkable. Patient's had some nonspecific GI symptoms for the past. She has a tentative diagnosis of irritable bowel syndrome. Review of systems: GEN.: Tired EYES: None HEENT: None NECK: None RESPIRATORY: None CARDIOVASCULAR: None GASTROINTESTINAL: None GENITOURINARY: None MUSCULOSKELETAL: Chronic aches and pains LYMPHATICS: None HEMATOLOGICAL: None PSYCHIATRY: None NEUROLOGICAL: None Past medical history to include: Diabetes mellitus type 2, fibromyalgia, hyperlipidemia, hypertension, osteoarthr itis, right eye cataract, lupus, heart murmur since third grade. Social history: Patient smoked about half a pack daily for 38 years, stopped 4 years ago.". . Patient is on disability. Physical examination: VITAL SIGNS: 98.372, 18, 144/85, 98% on room air GENERAL: BMI 40.4, propped up in bed, comfortable a bit tired. EYES: Pupils equal. Conjunctiva normal. HEENT: External appearance of nose and ears normal, oral cavity grossly normal. NECK: JVD not raised; masses not palpable. HEART: First and second heart sounds are normal; no edema. LUNGS: Respiratory rate normal; clear to auscultation. ABDOMEN: Soft, mild tenderness, no guarding or rigidity, liver spleen not palpable, no masses palpable. PSYCH: Alert and oriented x3; mood and affect normal. NEUROLOGICAL: Cranial nerves grossly intact; no facial asymmetry, power and sensation grossly intact. LYMPHATICS: No lymph nodes palpable in the axilla and neck INVESTIGATIONS, reviewed in the clinical context: White count 10.2 hemoglobin 16.8 platelets 275 potassium 3.6 creatinine 0.7 AST 62 ALT 54 UA negative for leukoesterase on nitrate C. diff negative Computed tomography scan of the abdomen-some enlargement of liver, 7 mm nonobstructing left renal calculus Scattered liquid stool throughout the colon Assessment: -Acute severe gastroenteritis, nonspecific colitis likely food poisoning. Patient does remember eating from outside meat that it.taste right. Normally these episodes are self limiting. And patient last vomiting and diarrhea was yesterday. -Possible irritable bowel syndrome. Patient had EGD colonoscopy about a year ago that was unremarkable -Diabetes mellitus type 2 -Chronic fibromyalgia -Essential hypertension -Hyperlipidemia -Primary osteoarthritis -Chronic lupus under remission -Chronic cardiac murmur -Left renal calculus nonobstructive -Hepatomegaly-for outpatient follow-up with GI Plan: Patient be started on clear liquids were advanced slowly as tolerated. Patient's abdomen is not surgical. Lovenox for DVT prophylaxis. Other home medications resumed. Accu-Cheks will be followed. Care was discussed in length the patient question were answered. Past Medical History Past Medical History: Diabetes Mellitus, Fibromyalgia, Hyperlipidemia, Hypertension, Osteoarthritis (OA), Supraventricular Tachycardia (SVT) Additional Past Medical History / Comment(s): dm2- takes medication. right eye cataract, lupus, OCCASIONAl SVT- last july of 2015. Heart murmur since third grade. History of Any Multi-Drug Resistant Organisms: None Reported Past Surgical History: Cholecystectomy, Orthopedic Surgery, Tubal Ligation Additional Past Surgical History / Comment(s): arthroscopic left knee Past Anesthesia/Blood Transfusion Reactions: Motion Sickness Past Psychological History: Depression Smoking Status: Former smoker Past Alcohol Use History: None Reported Additional Past Alcohol Use History / Comment(s): started smoking at age 11 quit at age 49 smoked 1/2 ppd Past Drug Use History: Marijuana Additional Drug Use History / Comment(s): Smokes marijuana daily. - Past Family History Mother Family Medical History: Cancer Father Family Medical History: Cancer Medications and Allergies Home Medications Medication Instructions Recorded Confirmed Type Albuterol Inhaler [Ventolin Hfa 2 puff INHALATION RT-Q6H PRN 03/11/17 04/05/19 History Inhaler] Famotidine 40 mg PO DAILY 03/11/17 04/05/19 History Cholecalciferol [Vitamin D3] 5,000 unit PO DAILY 03/15/18 04/05/19 History Metoprolol Succinate [Toprol XL] 100 mg PO DAILY 03/15/18 04/05/19 History Empagliflozin [Jardiance] 25 mg PO DAILY 04/05/19 04/05/19 History Escitalopram [Lexapro] 20 mg PO DAILY 04/05/19 04/05/19 History Ibuprofen [Motrin] 800 mg PO DAILY PRN 04/05/19 04/05/19 History Vitamin E 400 unit PO DAILY 04/05/19 04/05/19 History sitaGLIPtin PHOSPHATE [Januvia] 100 mg PO DAILY 04/05/19 04/05/19 History Allergies Allergy/AdvReac Type Severity Reaction Status Date / Time erythromycin base Allergy Rash/Hives Verified 04/05/19 22:32 hepatitis B immune globulin Allergy Unknown Verified 04/05/19 23:08 Childhood morphine Allergy Rash/Hives Verified 04/05/19 23:08 Mushroom Allergy Swelling Verified 04/05/19 23:08 Physical Exam Vitals: Vital Signs Temp Pulse Pulse Resp BP BP Pulse Ox 04/06/19 08:30 98.3 F 66 16 151/77 95 04/05/19 22:37 97.9 F 62 18 129/77 97 04/05/19 21:34 96.8 F L 56 L 18 133/63 96 04/05/19 20:15 97.4 F L 60 18 132/70 96 04/05/19 16:34 98.3 F 72 18 144/85 98 Intake and Output 04/05/19 04/06/19 04/06/19 22:59 06:59 14:59 Intake Total 1 Balance 1 Intake: Oral 1 Other: # Voids 1 Weight 106.7 kg Results CBC & Chem 7: 04/05/19 17:29 04/05/19 17:29 Labs: Abnormal Lab Results - Last 24 Hours (Table) 04/05/19 04/05/19 04/05/19 Range/Units 17:29 17:29 20:13 RBC 5.90 H (3.80-5.40) m/uL Hgb 16.8 H (11.4-16.0) gm/dL Hct 49.0 H (34.0-46.0) % Neutrophils # 8.0 H (1.3-7.7) k/uL Carbon Dioxide 21 L (22-30) mmol/L BUN 18 H (7-17) mg/dL Glucose 111 H (74-99) mg/dL AST 62 H (14-36) U/L ALT 54 H (4-34) U/L Ur Specific Hurst >1.050 H (1.001-1.035) Urine Protein Trace H (Negative) Urine Glucose (UA) 4+ H (Negative) Urine Ketones 2+ H (Negative) Thrombosis Risk Factor Assmnt - Choose All That Apply Any of the Below Risk Factors Present?: Yes Each Factor Represents 1 point: Age 41-60 years, Obesity (BMI >25) Other Risk Factors: No Other congenital or acquired thrombophilia - If yes, enter type in comment: No Thrombosis Risk Factor Assessment Total Risk Factor Score: 2 Thrombosis Risk Factor Assessment Level: Low Risk
[2019-04-07 07:21] LABS: HCT 46.7 % (34.0-46.0); HGB 15.5 gm/dL (11.4-16.0); MCH 28.4 pg (25.0-35.0); MCHC 33.2 g/dL (31.0-37.0); MCV 85.4 fL (80.0-100.0); Mean Platelet Volume 7.4; Platelet Count 206 k/uL (150-450); RBC 5.47 m/uL (3.80-5.40); RDW 14.6 % (11.5-15.5); WBC 6.2 k/uL (3.8-10.6)
[2019-04-07 07:33] LABS: African American GFR (CKD) >90 (>60 ml/min/1.73 sqM); Anion Gap 8 mmol/L; Blood Urea Nitrogen 9 mg/dL (7-17); Calcium 8.6 mg/dL (8.4-10.2); Carbon Dioxide 21 mmol/L (22-30); Chloride 110 mmol/L (98-107); Glucose 90 mg/dL (74-99); Non-African American GFR(CKD) >90 (>60 ml/min/1.73 sqM); Potassium 3.3 mmol/L (3.5-5.1); Sodium 139 mmol/L (137-145)
[2019-04-07] MEDS: HYDROmorphone 1 MG/ML 1 ML SYRINGE IVP PRN ×2 (07:46→13:01)
[2019-04-07] MEDS: ONDANSETRON 4 MG/2 ML VIAL IVP PRN (07:46)
[2019-04-07] MEDS: LINAGLIPTIN 5 MG TABLET PO SCH (10:04)
[2019-04-07] MEDS: FAMOTIDINE 20 MG TAB PO SCH (10:04)
[2019-04-07] MEDS: METOPROLOL SUCCINATE (ER) 100 MG TAB.ER.24H PO SCH (10:04)
[2019-04-07] MEDS: VITAMIN E (DL,TOCOPHERYL ACET) 400 UNIT CAP PO SCH (10:04)
[2019-04-07] MEDS: ESCITALOPRAM 20 MG TAB PO SCH (10:04)
[2019-04-07] MEDS: ENOXAPARIN 40 MG/0.4 ML SYRINGE SQ SCH (10:05)
[2019-04-07] MEDS: SODIUM CHLORIDE 0.9% 1,000 ML IV STA (11:29)
[2019-04-07] MEDS ORDERED: SODIUM CHLORIDE 0.9% 1,000 ML IV SCH (11:30)
[2019-04-07] MEDS ORDERED: METOCLOPRAMIDE 5 MG/ML 2 ML VIAL IVP PRN (14:06)
[2019-04-07] MEDS ORDERED: LEVOFLOXACIN 500MG-D5W PMX 500 MG in DEXTROSE/WATER 1 100ML.BAG IVPB SCH ×2 (15:00→16:00)
[2019-04-07 16:00] VITALS: RESP 16
[2019-04-07] MEDS ORDERED: metroNIDAZOLE-NS PMX 500 MG in SALINE 1 100ML.BAG IVPB SCH (16:00)
--- NOTE | 2019-04-07 20:02 | XR ---
EXAMINATION TYPE: XR abdomen acute w cxr DATE OF EXAM: 04/07/2019 COMPARISON: NONE HISTORY: Nausea and vomiting TECHNIQUE: 4 views FINDINGS: Heart and mediastinum are normal. Lungs are clear. Diaphragm is normal. Bony thorax is inta ct. There is no sign of intestinal obstruction or pneumoperitoneum. Fecal pattern is normal. There is 4 mm calculus over the upper pole left kidney. There are clips from cholecystectomy. IMPRESSION: Nonacute abdomen. Left renal calculus. No active cardiopulmonary disease..
--- NOTE | 2019-04-07 20:32 | P.PN ---
Progress Note - Text Progress Note Date: 04/07/19 Presenting complaint: Nausea vomiting diarrhea History of presenting complaint: This is a very pleasant 53-year-old patient of Dr. Laguerre. Chronic stable medical conditions include diabetes, fibromyalgia, hypertension, hyperlipidemia, osteoarthritis, lupus. 4 days ago patient started off with having nausea abdominal discomfort related to a severe bouts of vomiting diarrhea abdominal pain. No fever no chills. Became rather exhausted tired rundown. Decided to present to the ER. Started on IV fluids. Patient had eaten some discharge from outside include some meat and did not feel that the meat was tasting right. Patient's last vomiting was yesterday and that he was yesterday do patient feels weak tired rundown. Patient about a year ago is had EGD and colonoscopic that was unremarkable. Patient's had some nonspecific GI symptoms for the past. She has a tentative diagnosis of irritable bowel syndrome. Admitted with severe gastroenteritis. Today-wasn't clear liquids. Also through a couple of times. No fever or chills. No bowel movement. In the evening again vomited supper. With more abdominal pain. Physical examination: VITAL SIGNS: [id number], 96% room air GENERAL: Sitting up in bed, tired. EYES: Pupils equal. Conjunctiva normal. HEENT: External appearance of nose and ears normal, oral cavity grossly normal. NECK: JVD not raised; masses not palpable. HEART: First and second heart sounds are normal; no edema. LUNGS: Respiratory rate normal; clear to auscultation. ABDOMEN: Soft, mild tenderness, no guarding or rigidity, liver spleen not palpable, no masses palpable. PSYCH: Alert and oriented x3; mood and affect normal. INVESTIGATIONS, reviewed in the clinical context: White count 10.2 hemoglobin 16.8 platelets 275 potassium 3.6 creatinine 0.7 AST 62 ALT 54 UA negative for leukoesterase on nitrate C. diff negative Computed tomography scan of the abdomen-some enlargement of liver, 7 mm nonobstructing left renal calculus Scattered liquid stool throughout the colon Assessment: -Acute severe gastroenteritis, nonspecific colitis likely food poisoning. Patient does remember eating from outside meat that it.taste right. Patient not able to tolerate clear liquids today. Vomited at least twice. Abdominal examination remains benign. Except tenderness. Repeat abdominal x-ray this evening remains unremarkable. -Possible irritable bowel syndrome. Patient had EGD colonoscopy about a year ago that was unremarkable -Diabetes mellitus type 2 -Chronic fibromyalgia -Essential hypertension -Hyperlipidemia -Primary osteoarthritis -Chronic lupus under remission -Chronic cardiac murmur -Left renal calculus nonobstructive -Hepatomegaly-for outpatient follow-up with GI Plan: We'll make the patient nothing by mouth. Getting GI consultation.. Change fluids to lactated Ringer's. Repeat labs in the morning. Patient empirically has been put on Flagyl and by mouth Levaquin.
[2019-04-07] MEDS ORDERED: ACETAMINOPHEN TAB 325 MG TAB PO PRN (20:39)
[2019-04-07] MEDS: LACTATED RINGERS 1,000 ML IV SCH (20:55)
[2019-04-07] MEDS: INSULIN ASPART (NovoLOG) 100 UNIT/ML VIAL SQ SCH (21:01)
[2019-04-07 21:02] LABS: Glucose,Whole Blood 114 mg/dL (75-99)
[2019-04-07] MEDS ORDERED: POTASSIUM CHLORIDE ER 20 MEQ TAB.ER PO ONE (21:30)
[2019-04-07] MEDS: metroNIDAZOLE 500 MG TAB PO SCH (22:34)
[2019-04-07 23:41] LABS: Hemoglobin A1C 6.6 % (4.0-6.0)
[2019-04-08 02:08] LABS: Glucose,Whole Blood 115 mg/dL (75-99)
[2019-04-08] MEDS: INSULIN ASPART (NovoLOG) 100 UNIT/ML VIAL SQ SCH ×2 (02:10→08:45)
[2019-04-08] MEDS: LACTATED RINGERS 1,000 ML IV SCH ×2 (02:11→08:52)
[2019-04-08] MEDS: ENOXAPARIN 40 MG/0.4 ML SYRINGE SQ SCH (08:40)
[2019-04-08] MEDS: FAMOTIDINE 20 MG TAB PO SCH (08:40)
[2019-04-08] MEDS: metroNIDAZOLE 500 MG TAB PO SCH (08:40)
[2019-04-08] MEDS: VITAMIN E (DL,TOCOPHERYL ACET) 400 UNIT CAP PO SCH (08:41)
[2019-04-08] MEDS: ESCITALOPRAM 20 MG TAB PO SCH (08:42)
[2019-04-08] MEDS: LINAGLIPTIN 5 MG TABLET PO SCH (08:42)
[2019-04-08] MEDS: METOPROLOL SUCCINATE (ER) 100 MG TAB.ER.24H PO SCH (08:44)
[2019-04-08 08:54] LABS: Glucose,Whole Blood 105 mg/dL (75-99)
[2019-04-08] MEDS ORDERED: LEVOFLOXACIN 500 MG TAB PO SCH (09:00)
[2019-04-08 09:35] VITALS: BP 122/70; PULSE 59; TEMP 97.6
--- NOTE | 2019-04-08 10:09 | PN ---
PROGRESS NOTE DATE OF DICTATION: April 08, 2019. REQUESTING PHYSICIAN: Dr. Laguerre. REASON FOR CONSULTATION: Nausea, vomiting, and diarrhea of 4 days duration. HISTORY OF PRESENT ILLNESS: The patient is a 53-year-old pleasant white female who was admitted to the hospital when she presented with acute onset of severe abdominal pain associated with nausea, vomiting, and diarrhea that started on Tuesday. She was having about 10-15 loose watery bowel movements daily and multiple episodes of emesis. She went to Emergency clinic and was advised to go to the emergency room and subsequently was admitted to the hospital for further evaluation. Since being in the hospital, she was having intense episodes of nausea, vomiting, and diarrhea. She was started on empiric antibiotics with Levaquin and Flagyl at the time of admission to the hospital. She did have stool studies for C difficile toxin that was negative. She also had a CT of the abdomen and pelvis done in the ER that showed scattered liquid stool throughout the colon. Small nonobstructing renal calculus and hepatomegaly as well as a small hernia. In the meantime, she has been on symptomatic therapy with pain medications as well as antiemetics and PPIs and she is feeling much better this morning. She has some abdominal pain today, mostly in the epigastric area, but no further episodes of nausea, vomiting. Had one bowel movement last night and feels hungry and wants to go home. PAST MEDICAL HISTORY: Significant for anxiety, irritable bowel syndrome, fibromyalgia, diabetes mellitus, hypertension, hyperlipidemia, degenerative joint disease. PAST SURGICAL HISTORY: Gallbladder surgery, EGD, colonoscopy about a year ago by me which was unremarkable. MEDICATIONS: At home: Januvia, vitamin E, Toprol, Motrin, famotidine, Lexapro, Jardiance, vitamin D3 and Ventolin. ALLERGIES: TO MORPHINE, MUSHROOM, HEPATITIS B IMMUNOGLOBULIN AND ERYTHROMYCIN. SOCIAL HISTORY: No smoking or alcohol use. FAMILY HISTORY: Unremarkable. REVIEW OF SYSTEMS: Cardiopulmonary: She denies any chest pain, shortness of breath. GENITOURINARY: No dysuria or hematuria. MUSCULOSKELETAL unremarkable. SKIN unremarkable. ENDOCRINE unremarkable. PSYCHIATRIC unremarkable. NEUROLOGY unremarkable. ENT/vision unremarkable. CONSTITUTIONAL: No recent weight loss. No fever, chills, night sweats. PHYSICAL EXAMINATION: She appears comfortable, no apparent distress. Vital signs stable. Blood pressure 119/68, pulse rate 58, temperature 97.8. HEENT examination unremarkable. Conjunctivae pink. Sclerae anicteric. Oral cavity no lesions. NECK: No JVD or lymph node enlargement. CHEST: Clear to auscultation. HEART: Regular rate and rhythm. ABDOMEN: Soft. There was mild tenderness in the epigastric area. Bowel sounds are positive. No organomegaly. EXTREMITIES: No pedal edema. SKIN: No rashes. NEUROLOGIC: Alert and oriented x3. No focal deficits. LABS: Done today WBC 6.2, hemoglobin 15.5, platelets normal. Basic metabolic panel is within normal limits. C difficile is negative. AST and ALT minimally elevated at 62 and 54 respectively. IMPRESSION: This is a lady who presents to the hospital with acute onset of nausea, vomiting, diarrhea for the last 5 days duration. Most likely dealing with viral gastroenteritis, which is gradually improving. Stool for C difficile toxin is negative. The patient was treated for upper respiratory infection with 4 different courses of antibiotics a month prior to onset of these symptoms and some of this could be related to antibiotic use also. In any event, her symptoms are gradually improving, presently remains on empiric Flagyl and Levaquin and doing much better. RECOMMENDATIONS: 1. Advance diet as tolerated. 2. Continue with Protonix 40 mg daily. 3. Continue empiric antibiotics. 4. If she is able to handle her diet well today, she can be discharged home with outpatient followup in 2-3 weeks. Thank you for this consultation. CARTER / RUBY: [id number] /
--- NOTE | 2019-04-08 22:38 | P.DS ---
Providers Date of admission: 04/07/19 09:20 Expected date of discharge: 04/08/19 Attending physician: Marcos Shay Consults: 04/07/19 20:27 Consult Physician Routine Consulting Provider: Tamika Bustos Consult Reason/Comments: Acute abdominal pain. Do you want consulting provider notified?: Yes Primary care physician: Rolan Laguerre Hospital Course: Presenting complaint: Nausea vomiting diarrhea Hospital course: This is a very pleasant 53-year-old patient of Dr. Laguerre. Chronic stable medical conditions include diabetes, fibromyalgia, hypertension, hyperlipidemia, osteoarthritis, lupus. 4 days ago patient started off with having nausea abdominal discomfort related to a severe bouts of vomiting diarrhea abdominal pain. No fever no chills. Became rather exhausted tired rundown. Decided to present to the ER. Started on IV fluids. Patient had eaten some discharge from outside include some meat and did not feel that the meat was tasting right. Patient's last vomiting was yesterday and that he was yesterday do patient feels weak tired rundown. Patient about a year ago is had EGD and colonoscopic that was unremarkable. Patient's had some nonspecific GI symptoms for the past. She has a tentative diagnosis of irritable bowel syndrome. Admitted with severe gastroenteritis. Treat with Cipro and Flagyl. Responded well. Given IV fluids. Today-tolerate a soft diet. No further symptoms. Feeling well. General Counselor: Dr. Hilario Bustos from GI Physical examination: VITAL SIGNS: [id number]/70-96% on room air GENERAL: Laying in bed, comfortable EYES: Pupils equal. Conjunctiva normal. HEENT: External appearance of nose and ears normal, oral cavity grossly normal. NECK: JVD not raised; masses not palpable. HEART: First and second heart sounds are normal; no edema. LUNGS: Respiratory rate normal; clear to auscultation. ABDOMEN: Soft, no tenderness, no guarding or rigidity, liver spleen not palpable, no masses palpable. PSYCH: Alert and oriented x3; mood and affect normal. INVESTIGATIONS, reviewed in the clinical context: White count 10.2 hemoglobin 16.8 platelets 275 potassium 3.6 creatinine 0.7 AST 62 ALT 54 UA negative for leukoesterase on nitrate C. diff negative Computed tomography scan of the abdomen-some enlargement of liver, 7 mm nonobstructing left renal calculus Scattered liquid stool throughout the colon Assessment: -Acute severe gastroenteritis, nonspecific colitis likely food poisoning. -Possible irritable bowel syndrome. Patient had EGD colonoscopy about a year ago that was unremarkable -Diabetes mellitus type 2 -Chronic fibromyalgia -Essential hypertension -Hyperlipidemia -Primary osteoarthritis -Chronic lupus under remission -Chronic cardiac murmur -Left renal calculus nonobstructive -Hepatomegaly-for outpatient follow-up with GI Disposition: Home Patient Condition at Discharge: Fair Plan - Discharge Summary Discharge Rx Participant: No New Discharge Prescriptions: New metroNIDAZOLE [Flagyl] 500 mg PO TID #6 tab Levofloxacin [Levaquin] 500 mg PO Q24H #2 tab Continue Albuterol Inhaler [Ventolin Hfa Inhaler] 2 puff INHALATION RT-Q6H PRN PRN Reason: Shortness Of Breath Cholecalciferol [Vitamin D3 (25 Mcg = 1000 Iu)] 5,000 unit PO DAILY Metoprolol Succinate [Toprol XL] 100 mg PO DAILY Escitalopram [Lexapro] 20 mg PO DAILY sitaGLIPtin PHOSPHATE [Januvia] 100 mg PO DAILY Empagliflozin [Jardiance] 25 mg PO DAILY Vitamin E 400 unit PO DAILY Changed Famotidine 20 mg PO BID #0 No Action Ibuprofen [Motrin] 800 mg PO DAILY PRN PRN Reason: Pain Discharge Medication List Albuterol Inhaler [Ventolin Hfa Inhaler] 2 puff INHALATION RT-Q6H PRN 03/11/17 [History] Cholecalciferol [Vitamin D3 (25 Mcg = 1000 Iu)] 5,000 unit PO DAILY 03/15/18 [History] Metoprolol Succinate [Toprol XL] 100 mg PO DAILY 03/15/18 [History] Empagliflozin [Jardiance] 25 mg PO DAILY 04/05/19 [History] Escitalopram [Lexapro] 20 mg PO DAILY 04/05/19 [History] Ibuprofen [Motrin] 800 mg PO DAILY PRN 04/05/19 [History] Vitamin E 400 unit PO DAILY 04/05/19 [History] sitaGLIPtin PHOSPHATE [Januvia] 100 mg PO DAILY 04/05/19 [History] Famotidine 20 mg PO BID #0 04/08/19 [Rx] Levofloxacin [Levaquin] 500 mg PO Q24H #2 tab 04/08/19 [Rx] metroNIDAZOLE [Flagyl] 500 mg PO TID #6 tab 04/08/19 [Rx] Follow up Appointment(s)/Referral(s): Rolan Laguerre MD [Primary Care Provider] - 1-2 days Activity/Diet/Wound Care/Special Instructions: soft bland diet FOLLOW UP DIRECTED, SOONER FOR WORSENING PAIN, PROBLEMS, OR CONCERNS. Discharge Disposition: HOME SELF-CARE
== END 2019-04-08 14:44 | disposition home or self-care (01) | DRG 392 ==
LOC: EC 16:31 → 6PED 21:03 → OBSVTOIN 04-07 09:20
PROVIDERS: ADMIT Hospitalist; ATTEND Hospitalist
DX: A05.9 Bacterial foodborne intoxication, unspecified (principal); E11.36 Type 2 diabetes mellitus with diabetic cataract; R16.0 Hepatomegaly, not elsewhere classified; K58.0 Irritable bowel syndrome with diarrhea; H26.9 Unspecified cataract; N20.0 Calculus of kidney; I10 Essential (primary) hypertension; F32.9 Major depressive disorder, single episode, unspecified; M79.7 Fibromyalgia; E78.5 Hyperlipidemia, unspecified; R01.1 Cardiac murmur, unspecified; M19.91 Primary osteoarthritis, unspecified site; Z79.84 Long term (current) use of oral hypoglycemic drugs; Z79.899 Other long term (current) drug therapy; Z87.891 Personal history of nicotine dependence; Z90.49 Acquired absence of other specified parts of digestive tract; Z87.39 Personal history of other diseases of the musculoskeletal system and connective tissue; Z98.51 Tubal ligation status; Z98.890 Other specified postprocedural states; Z88.1 Allergy status to other antibiotic agents; Z88.5 Allergy status to narcotic agent; Z88.7 Allergy status to serum and vaccine; Z91.018 Allergy to other foods; Z80.9 Family history of malignant neoplasm, unspecified
CPT/HCPCS: 36415; 74022; 74177; 80048; 80053; 81003; 82150; 83036; 83605; 83690; 85025; 85027; 87324; 96361; 96374; 96375; 99285

== ENCOUNTER 2022-02-16 21:50 | Emergency (ER) | payer MEDICARE, OTHER ==
[2022-02-16 23:15] LABS: Basophils # (A) 0.1 k/uL (0-0.2); Basophils % (A) 1 %; Eosinophils # (A) 0.3 k/uL (0-0.7); Eosinophils % (A) 3 %; HCT 44.9 % (34.0-46.0); HGB 15.3 gm/dL (11.4-16.0); Lymphocytes # (A) 2.7 k/uL (1.0-4.8); Lymphocytes % (A) 24 %; MCH 29.1 pg (25.0-35.0); MCHC 34.1 g/dL (31.0-37.0); MCV 85.3 fL (80.0-100.0); Mean Platelet Volume 9.7; Monocytes # (A) 0.6 k/uL (0-1.0); Monocytes % (A) 5 %; Neutrophils # (A) 7.1 k/uL (1.3-7.7); Neutrophils % (A) 65 %; Platelet Count 254 k/uL (150-450); RBC 5.26 m/uL (3.80-5.40); RDW 13.8 % (11.5-15.5)
[2022-02-16 23:30] LABS: Partial Thromboplastin Time 35.2 sec (22.0-30.0); Prothrombin Time 10.5 sec (9.0-12.0)
[2022-02-16 23:33] LABS: ALT 26 U/L (4-34); AST 33 U/L (14-36); African American GFR (CKD) >90 (>60 ml/min/1.73 sqM); Albumin 4.2 g/dL (3.5-5.0); Alkaline Phosphatase 151 U/L (38-126); Anion Gap 10 mmol/L; Blood Urea Nitrogen 18 mg/dL (7-17); Calcium 9.1 mg/dL (8.4-10.2); Carbon Dioxide 25 mmol/L (22-30); Chloride 106 mmol/L (98-107); Glucose 123 mg/dL (74-99); Lipase 162 U/L (23-300); Non-African American GFR(CKD) >90 (>60 ml/min/1.73 sqM); Potassium 3.9 mmol/L (3.5-5.1); Sodium 141 mmol/L (137-145); Total Bilirubin 0.6 mg/dL (0.2-1.3); Total Protein 7.4 g/dL (6.3-8.2)
--- NOTE | 2022-02-17 00:34 | US ---
EXAMINATION TYPE: US abdomen limited DATE OF EXAM: 02/17/2022 COMPARISON: NONE CLINICAL HISTORY: RUQ pain. RUQ pain. Cholecystectomy TECHNIQUE: Multiple sonographic images of the right upper quadrant are obtained. FINDINGS: EXAM MEASUREMENTS: Liver Length: 19.3 cm Gallbladder Wall: Surgically absent CBD: 0.72 cm Right Kidney: 12.1 x 5.4 x 4.3 cm MANAGER GENERAL NOTES: Pancreas: wnl Liver: Heterogeneous Gallbladder: Surgically absent Evidence for sonographic Soriano's sign: No CBD: wnl Right Kidney: wnl IMPRESSION: No evidence for acute process.
[2022-02-17 00:46] VITALS: RESP 18
[2022-02-17 02:06] LABS: Appearance,Urine Clear (Clear); Bilirubin,Urine Negative (Negative); Blood,Urine Negative (Negative); Color,Urine Yellow; Glucose,Urine (UA) 4+ (Negative); Ketones,Urine Negative (Negative); Leukocyte Esterase,Urine Negative (Negative); Nitrite,Urine Negative (Negative); Protein,Urine Trace (Negative); Urobilinogen,Urine <2.0 mg/dL (<2.0)
[2022-02-17] MEDS ORDERED: DICYCLOMINE 10 MG/ML 2 ML AMP IM STA (02:13)
--- NOTE | 2022-02-17 02:20 | ED ---
General Adult HPI - General Chief complaint: Abdominal Pain Stated complaint: abd & back pain Time Seen by Provider: 02/16/22 22:09 Source: patient Mode of arrival: ambulatory Limitations: no limitations - History of Present Illness Initial comments: This is a 56-year-old female with a past medical history including fibromyalgia, lupus, diabetes presented to the emergency department for right upper quadrant abdominal pain. The patient stated this abdominal pain has been present over the last 3 days and has been an intermittent stabbing pain. The patient did state that she has a cholecystectomy but stated that she had continued pain. The patient was seen at an outside facility, [facility] yesterday and had a full workup including laboratory workup and computed tomography scan which was completely negative. The patient then followed up with her primary care physician this morning and was once again told that everything looked negative however she did request an ultrasound to be performed in the right upper quadrant. When the patient presented, the patient stated that she had continued intermittent pain but denied any nausea or vomiting. The patient was resting in bed comfortably. - Related Data Home Medications Medication Instructions Recorded Confirmed Albuterol Inhaler [Ventolin Hfa 2 puff INHALATION RT-Q6H PRN 03/11/17 04/05/19 Inhaler] Cholecalciferol [Vitamin D3 (25 5,000 unit PO DAILY 03/15/18 04/05/19 Mcg = 1000 Iu)] Metoprolol Succinate [Toprol XL] 100 mg PO DAILY 03/15/18 04/05/19 Empagliflozin [Jardiance] 25 mg PO DAILY 04/05/19 04/05/19 Escitalopram [Lexapro] 20 mg PO DAILY 04/05/19 04/05/19 Ibuprofen [Motrin] 800 mg PO DAILY PRN 04/05/19 04/05/19 Vitamin E 400 unit PO DAILY 04/05/19 04/05/19 sitaGLIPtin PHOSPHATE [Januvia] 100 mg PO DAILY 04/05/19 04/05/19 Previous Rx's Medication Instructions Recorded Famotidine 20 mg PO BID #0 04/08/19 Levofloxacin [Levaquin] 500 mg PO Q24H #2 tab 04/08/19 metroNIDAZOLE [Flagyl] 500 mg PO TID #6 tab 04/08/19 Dicyclomine [Bentyl] 10 mg PO TID #90 capsule 02/17/22 Allergies Allergy/AdvReac Type Severity Reaction Status Date / Time erythromycin base Allergy Rash/Hives Verified 04/05/19 22:32 gabapentin Allergy Rash/Hives Verified 02/16/22 22:07 hepatitis B immune globulin Allergy Unknown Verified 04/05/19 23:08 Childhood meloxicam Allergy Rash/Hives Verified 02/16/22 22:07 morphine Allergy Rash/Hives Verified 04/05/19 23:08 Mushroom Allergy Swelling Verified 04/05/19 23:08 Review of Systems ROS Statement: Those systems with pertinent positive or pertinent negative responses have been documented in the HPI. ROS Other: All systems not noted in ROS Statement are negative. Past Medical History Past Medical History: Diabetes Mellitus, Fibromyalgia, Hyperlipidemia, Hypertens ion, Osteoarthritis (OA), Supraventricular Tachycardia (SVT) Additional Past Medical History / Comment(s): dm2- takes medication. right eye cataract, lupus, OCCASIONAl SVT- last july of 2015. Heart murmur since third grade. History of Any Multi-Drug Resistant Organisms: None Reported Past Surgical History: Cholecystectomy, Orthopedic Surgery, Tubal Ligation Additional Past Surgical History / Comment(s): arthroscopic left knee Past Anesthesia/Blood Transfusion Reactions: Motion Sickness Past Psychological History: Depression Past Alcohol Use History: None Reported Past Drug Use History: Marijuana - Past Family History Mother Family Medical History: Cancer Father Family Medical History: Cancer General Exam Limitations: no limitations General appearance: alert, in no apparent distress Head exam: Present: atraumatic, normocephalic, normal inspection Eye exam: Present: normal appearance, PERRL Pupils: Present: normal accommodation ENT exam: Present: normal exam, normal oropharynx, mucous membranes moist Neck exam: Present: normal inspection, full ROM Respiratory exam: Present: normal lung sounds bilaterally Cardiovascular Exam: Present: regular rate, normal rhythm, normal heart sounds GI/Abdominal exam: Present: soft, tenderness (Mild tenderness to palpation to the right upper quadrant), normal bowel sounds Extremities exam: Present: normal inspection, full ROM, normal capillary refill Back exam: Present: normal inspection, full ROM Neurological exam: Present: alert, oriented X3, CN II-XII intact Psychiatric exam: Present: normal affect, normal mood Skin exam: Present: warm, dry Course Vital Signs 02/16/22 02/17/22 22:04 00:45 Temperature 97 F L Pulse Rate 75 66 Respiratory 16 18 Rate Blood Pressure 156/88 149/74 O2 Sat by Pulse 98 99 Oximetry Medical Decision Making - Medical Decision Making The patient was seen and evaluated emergency department. Physical exam, the patient was resting in bed without any acute distress. Vital signs admission were stable and within normal limits. Laboratory workup was obtained as was an ultrasound of the right upper quadrant rule out any intra-abdominal pathology. Because the patient had a negative computed tomography scan at the outside facility yesterday, the computed tomography scan will not be performed once ag ain today. All laboratory workup was within normal limits. The limited right upper quadrant ultrasound was obtained and was interpreted by myself showing no intra-abdominal pathology noted. On reevaluation, the patient stated that she still had continued intermittent pain and was given a dose of IM Bentyl. The patient stated that she had moderate improvement with this medication and was given a prescription for this. The patient was told to follow-up with her primary care physician for further workup and evaluation and to report back to the emergency department if her pain became acutely worse. The patient was agreeable to this and all of her questions were answered. The patient was d ischarged home in stable condition. - Lab Data Result diagrams: 02/16/22 22:54 02/16/22 22:54 Lab Results 02/16/22 02/16/22 02/16/22 Range/Units 22:54 22:54 22:54 WBC 11.0 H (3.8-10.6) k/uL RBC 5.26 (3.80-5.40) m/uL Hgb 15.3 (11.4-16.0) gm/dL Hct 44.9 (34.0-46.0) % MCV 85.3 (80.0-100.0) fL MCH 29.1 (25.0-35.0) pg MCHC 34.1 (31.0-37.0) g/dL RDW 13.8 (11.5-15.5) % Plt Count 254 (150-450) k/uL MPV 9.7 Neutrophils % 65 % Lymphocytes % 24 % Monocytes % 5 % Eosinophils % 3 % Basophils % 1 % Neutrophils # 7.1 (1.3-7.7) k/uL Lymphocytes # 2.7 (1.0-4.8) k/uL Monocytes # 0.6 (0-1.0) k/uL Eosinophils # 0.3 (0-0.7) k/uL Basophils # 0.1 (0-0.2) k/uL PT 10.5 (9.0-12.0) sec INR 1.0 (<1.2) APTT 35.2 H (22.0-30.0) sec Sodium 141 (137-145) mmol/L Potassium 3.9 (3.5-5.1) mmol/L Chloride 106 (98-107) mmol/L Carbon Dioxide 25 (22-30) mmol/L Anion Gap 10 mmol/L BUN 18 H (7-17) mg/dL Creatinine 0.74 (0.52-1.04) mg/dL Est GFR (CKD-EPI)AfAm >90 (>60 ml/min/1.73 sqM) Est GFR (CKD-EPI)NonAf >90 (>60 ml/min/1.73 sqM) Glucose 123 H (74-99) mg/dL Calcium 9.1 (8.4-10.2) mg/dL Total Bilirubin 0.6 (0.2-1.3) mg/dL AST 33 (14-36) U/L ALT 26 (4-34) U/L Alkaline Phosphatase 151 H (38-126) U/L Total Protein 7.4 (6.3-8.2) g/dL Albumin 4.2 (3.5-5.0) g/dL Lipase 162 (23-300) U/L Urine Color Urine Appearance (Clear) Urine pH (5.0-8.0) Ur Specific Calvin (1.001-1.035) Urine Protein (Negative) Urine Glucose (UA) (Negative) Urine Ketones (Negative) Urine Blood (Negative) Urine Nitrite (Negative) Urine Bilirubin (Negative) Urine Urobilinogen (<2.0) mg/dL Ur Leukocyte Esterase (Negative) 02/17/22 Range/Units 01:15 WBC (3.8-10.6) k/uL RBC (3.80-5.40) m/uL Hgb (11.4-16.0) gm/dL Hct (34.0-46.0) % MCV (80.0-100.0) fL MCH (25.0-35.0) pg MCHC (31.0-37.0) g/dL RDW (11.5-15.5) % Plt Count (150-450) k/uL MPV Neutrophils % % Lymphocytes % % Monocytes % % Eosinophils % % Basophils % % Neutrophils # (1.3-7.7) k/uL Lymphocytes # (1.0-4.8) k/uL Monocytes # (0-1.0) k/uL Eosinophils # (0-0.7) k/uL Basophils # (0-0.2) k/uL PT (9.0-12.0) sec INR (<1.2) APTT (22.0-30.0) sec Sodium (137-145) mmol/L Potassium (3.5-5.1) mmol/L Chloride (98-107) mmol/L Carbon Dioxide (22-30) mmol/L Anion Gap mmol/L BUN (7-17) mg/dL Creatinine (0.52-1.04) mg/dL Est GFR (CKD-EPI)AfAm (>60 ml/min/1.73 sqM) Est GFR (CKD-EPI)NonAf (>60 ml/min/1.73 sqM) Glucose (74-99) mg/dL Calcium (8.4-10.2) mg/dL Total Bilirubin (0.2-1.3) mg/dL AST (14-36) U/L ALT (4-34) U/L Alkaline Phosphatase (38-126) U/L Total Protein (6.3-8.2) g/dL Albumin (3.5-5.0) g/dL Lipase (23-300) U/L Urine Color Yellow Urine Appearance Clear (Clear) Urine pH 6.0 (5.0-8.0) Ur Specific Calvin 1.040 H (1.001-1.035) Urine Protein Trace H (Negative) Urine Glucose (UA) 4+ H (Negative) Urine Ketones Negative (Negative) Urine Blood Negative (Negative) Urine Nitrite Negative (Negative) Urine Bilirubin Negative (Negative) Urine Urobilinogen <2.0 (<2.0) mg/dL Ur Leukocyte Esterase Negative (Negative) Disposition Clinical Impression: Abdominal pain Disposition: HOME SELF-CARE Condition: Stable Instructions (If sedation given, give patient instructions): Abdominal Pain (ED) Prescriptions: Dicyclomine [Bentyl] 10 mg PO TID #90 capsule Is patient prescribed a controlled substance at d/c from ED?: No Referrals: Dave Camacho MD [Primary Care Provider] - 1-2 days Time of Disposition: 02:15
[2022-02-17 02:33] VITALS: BP 136/85; PULSE 62; TEMP 98.1
== END 2022-02-17 02:41 | disposition home or self-care (01) ==
LOC: EC 21:50
DX: R10.11 Right upper quadrant pain (principal); E11.9 Type 2 diabetes mellitus without complications; E78.5 Hyperlipidemia, unspecified; I10 Essential (primary) hypertension; M19.90 Unspecified osteoarthritis, unspecified site; F32.A Depression, unspecified; F12.90 Cannabis use, unspecified, uncomplicated; Z88.1 Allergy status to other antibiotic agents; Z88.8 Allergy status to other drugs, medicaments and biological substances; Z88.7 Allergy status to serum and vaccine; Z88.6 Allergy status to analgesic agent; Z91.018 Allergy to other foods; Z79.899 Other long term (current) drug therapy; Z90.49 Acquired absence of other specified parts of digestive tract; Z79.84 Long term (current) use of oral hypoglycemic drugs
CPT/HCPCS: 99284 ×2; 96372 ×2; 36415; 80053; 83690; 85025; 85610; 85730; 81003; 76705; J0500

== ENCOUNTER → 2022-06-23 | Outpatient (CLI) | payer MEDICARE, OTHER ==
[2022-06-23 09:45] LABS: African American GFR (CKD) >90 (>60 ml/min/1.73 sqM); Blood Urea Nitrogen 14 mg/dL (7-17); Non-African American GFR(CKD) >90 (>60 ml/min/1.73 sqM)
--- NOTE | 2022-06-23 11:08 | CT ---
EXAMINATION TYPE: CT chest w con DATE OF EXAM: 06/23/2022 COMPARISON: Prior chest CT April 02, [address] abdomen March 2019 HISTORY: lung nodule CT DLP: 509 mGycm. Automated Exposure Control for Dose Reduction was Utilized. TECHNIQUE: CT scan of the thorax is performed following with IV Contrast, patient injected with 100 mL of Isovue 300. FINDINGS: LUNGS: Stable 6 to 7 mm peripheral posterior right lower lung groundglass nodule axial image 37 from prior CTs. No new greater than 5 mm pulmonary nodules or masses bilaterally. There is no pleural eff usion or pneumothorax seen. The tracheobronchial tree is patent. MEDIASTINUM: There are no greater than 1 cm hilar or mediastinal lymph nodes. No cardiomegaly or pe ricardial effusion is seen. Mild coronary artery calcification is present. OTHER: Stable roughly 9 mm upper pole left renal calculus image 67. IMPRESSION: Stable 6 to 7 mm peripheral right lower lobe groundglass nodule. No new or enlarging grea ter than 5 mm pulmonary nodules.
== END | disposition home or self-care (01) ==
LOC: RADCTMAIN 08:47
PROVIDERS: ATTEND Internal Medicine
DX: R91.1 Solitary pulmonary nodule (principal)
CPT/HCPCS: 82565; 84520; 71260; 36415; Q9967

== ENCOUNTER → 2022-06-23 | Outpatient (CLI) | payer MEDICARE, OTHER ==
--- NOTE | 2022-06-23 14:43 | FL ---
EXAMINATION TYPE: FL UGI w small bowel DATE OF EXAM: 06/23/2022 COMPARISON: CT abdomen and pelvis April 05, 2019 HISTORY: Unspecified abdominal pain. Nausea and vomiting. TECHNIQUE: A double contrast UGI study is performed with small bowel follow through. A total of 53 seconds of fluoroscopic time was utilized during procedure and 52 images obtained. Total dose are a product (DAP) in uGy*m?, mGy*cm? (or similar): n/a. FINDINGS: [employer] D[employer] Helper image of the abdomen shows contrast excretion in the kidneys from chest CT study ear lier today. Overall nonobstructive bowel gas pattern. Cholecystectomy clips are noted. The esophagus shows satisfactory motility and emptying into the stomach. No proximal diverticulum. N o evidence of fixed hiatal hernia or stricture noted. The stomach shows normal distensibility, peristalsis, and mucosal folds. No evidence of any mass or ulcer disease. Mild to moderate distal gastroesophageal reflux seen during real-time performance of t he study.. The duodenal bulb and sweep are unremarkable. The small bowel study shows normal transit to the colon in less than 3 hours 15 minutes. There is no rmal mucosal fold pattern throughout the small bowel. There is no evidence of any stricture or filli ng defect noted. The terminal ileum is spotted and appears unremarkable. IMPRESSION: [id number] distal gastroesophageal reflux otherwise unremarkable study.
== END | disposition home or self-care (01) ==
LOC: RADUSWWP 10:01
PROVIDERS: ATTEND Internal Medicine Gastroenterology
DX: K21.9 Gastro-esophageal reflux disease without esophagitis (principal); R11.2 Nausea with vomiting, unspecified
CPT/HCPCS: 74240; 74248

== ENCOUNTER → 2023-01-31 | Outpatient (CLI) | payer MEDICARE, OTHER ==
[2023-01-31 11:43] LABS: African American GFR (CKD) >90 (>60 ml/min/1.73 sqM); Blood Urea Nitrogen 18 mg/dL (7-17); Non-African American GFR(CKD) >90 (>60 ml/min/1.73 sqM)
--- NOTE | 2023-01-31 12:26 | CT ---
EXAMINATION TYPE: CT chest w con DATE OF EXAM: 01/31/2023 COMPARISON: 04/02/2022 HISTORY: Lung nodule CT DLP: 387.80 mGycm, Automated exposure control for dose reduction was used. CONTRAST: Performed injected with 100 mL of Isovue 300. TECHNIQUE: Axial images were obtained at 5 mm thick sections. Reconstructed images are reviewed on [employer] computer in the coronal plane. FINDINGS: Portion of the thyroid visualized is normal. There is a 0.7 cm peripheral nodule posterior right midlung. Series 4 image 33. No significant interv al change. No enlarged mediastinal or hilar adenopathy is evident. The ascending aorta diameter at the level o f the main pulmonary artery is 3.2 cm. The main pulmonary artery diameter at the bifurcation is 3.6 cm. Correlate for pulmonary hypertension Limited CT sections are obtained through the upper abdomen. Abdomen is essentially unremarkable. IMPRESSION: 1. Peripheral nodule right posterior lung. Follow-up in 6 months is recommended. 2. Clinical correlation for pulmonary hypertension.
== END | disposition home or self-care (01) ==
LOC: RADCTMAIN 10:53
PROVIDERS: ATTEND Internal Medicine
DX: R91.1 Solitary pulmonary nodule (principal)
CPT/HCPCS: 82565; 84520; 71260; 36415; Q9967

== ENCOUNTER → 2023-04-05 | Outpatient (CLI) | payer MEDICARE, OTHER ==
--- NOTE | 2023-04-05 11:29 | CT ---
EXAMINATION TYPE: CT sinus wo con CT DLP: 575.3 mGycm, Automated exposure control for dose reduction was used. DATE OF EXAM: 04/05/2023 11:03 AM COMPARISON: None. CLINICAL INDICATION:Female, 57 years old with history of J32.9 CHRONIC SINUSITIS, UNSPECIFIED; , sinu sitis TECHNIQUE: Multiple thin axial images were obtained through the paranasal sinuses without the use of IV contrast. Additional coronal and sagittal reformatted images were submitted for evaluation. Contrast used: none Oral contrast used: none FINDINGS: Frontal sinuses: Normally developed and aerated. Frontal Recess: Clear Maxillary Sinuses: Normally developed and aerated. Maxillary Infundibula([facility]): Clear, No Jeremy cells identified. Ethmoid sinuses: Normally developed and aerated. Ethmoidal notch: Protected and abutting the lateral lamina. Sphenoid sinuses: Normally developed and aerated. There is sellar sphenoid sinus pneumatization witho ut evidence of dehiscence. No dehiscence of carotid canal. No evidence of optic nerve dehiscence wit hin the sphenoid sinus. No evidence of Onodi cells. Sphenoethmoidal recesses: Clear. Nasal septum: Within normal limits.. Nasal Turbinates: Within normal limits. Bilateral evaristo bullosa of the middle turbinates. Mastoid air cells & middle ears: The air cells are clear. The middle ears are grossly unremarkable. Modified Soft tissues & Brain: Partially seen without gross abnormality. Bilateral aphakia. There is an expanded sella turcica [id number] mm in the AP dimension and up to 14 mm in the caudocranial dime nsion. Other: Cribriform plate demonstrates symmetric Keros classification type 2 cribriform plate. No evidence of bony dehiscence of skull base. Lamina papyracea is intact without evidence of remote orbital fracture or orbital prolapse into the e thmoid sinus. IMPRESSION: 1. No significant mucosal sinus disease. 2. The ostiomeatal units, frontonasal and sphenoethmoidal recesses are clear. 3. Expanded sella turcica consider correlation with prior cross-sectional imaging of the brain. MRI p ituitary mass protocol could be considered.
== END | disposition home or self-care (01) ==
LOC: RADCTMAIN 10:44
PROVIDERS: ATTEND Otolaryngology
DX: J32.9 Chronic sinusitis, unspecified (principal); E23.6 Other disorders of pituitary gland
CPT/HCPCS: 70486

== ENCOUNTER → 2023-04-23 | Outpatient (CLI) | payer MEDICARE, OTHER ==
--- NOTE | 2023-04-24 13:35 | MR ---
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 COMPARISON: CT sinus 08/22/2023. TECHNIQUE: Multi planar, multi sequence imaging was performed through the brain. Specialized thin s equences were obtained through the pituitary gland/sella turcica. Pre-and post gadolinium sequences were obtained. IV Contrast: 7.5 cc Gadavist FINDINGS: The sella turcica is mildly enlarged with high T2 signal with expanded CSF space. Partially empty sum[place]. The pituitary stalk is slightly deviated to the right. The Meckel caves are enlarged bilaterally. The chan-white junctions, ventricular system, and basal cisterns appear unremarkable. After administr ation of gadolinium, homogeneous pituitary enhancement is seen. The intracranial arterial flow voids are intact. IMPRESSION: Partially empty sella with expanded sella turcica morphology with enlarged CSF space immediately abov e the pituitary. Additionally there is enlarged Meckel caves bilaterally. Findings could represent id iopathic intracranial hypertension. Correlate with funduscopic examination for papilledema.
== END | disposition home or self-care (01) ==
LOC: RADMRIMAIN 13:43
PROVIDERS: ATTEND Family Medicine
DX: E23.6 Other disorders of pituitary gland (principal); R22.0 Localized swelling, mass and lump, head
CPT/HCPCS: 70553; A9585

== ENCOUNTER → 2023-08-05 | Outpatient (CLI) | payer MEDICARE, OTHER ==
[2023-08-05 06:40] LABS: African American GFR (CKD) >90 (>60 ml/min/1.73 sqM); Blood Urea Nitrogen 18 mg/dL (7-17); Non-African American GFR(CKD) >90 (>60 ml/min/1.73 sqM)
--- NOTE | 2023-08-05 08:44 | CT ---
EXAMINATION TYPE: CT chest w con CT DLP: 336.2 mGycm, Automated exposure control for dose reduction was used. DATE OF EXAM: 08/05/2023 7:07 AM COMPARISON: 01/31/2023 CLINICAL INDICATION:Female, 58 years old with history of R91.1 SOLITARY PULMONARY NODULE; PHH, lung n odule TECHNIQUE: Multiple axial images were obtained through the chest. Sagittal and coronal reformats were created for review. Contrast used:100 mL of Isovue 300 with IV Contrast (None if empty) Oral contrast used: (None if empty) FINDINGS: LUNGS/ PLEURA: Right lower lung posterior pulmonary nodule measuring 6 mm series 3 image 41. Is uncha nged from prior 01/31/2023. No new or enlarging pulmonary nodules. No focal consolidation, pneumothora x or pleural effusion. AIRWAY: Patent and unremarkable. HEART: Size within normal limits. MEDIASTINUM: No gross evidence of adenopathy. VASCULATURE: No aortic aneurysm. No filling defect to suggest pulmonary embolus. MUSCULOSKELETAL: No acute osseous abnormalities SOFT TISSUES/LYMPH NODES: Unremarkable. LOWER NECK: No significant findings. UPPER ABDOMEN: Cholecystectomy clips. IMPRESSION: 1. Stable right lower lobe posterior peripheral 6 cm pulmonary nodule back to at least 2020. Conside r low dose lung cancer screening yearly for surveillance if patient meets criteria. 2. No evidence for acute process. Follow up recommendations for incidental pulmonary nodules, if there are any, are per Flemarco?dino [employer] or [employer]. https://radiopaedia.org/articles/zrvzofbzgd-[email or web address]?lang=us
== END | disposition home or self-care (01) ==
LOC: RADCTMAIN 05:49
PROVIDERS: ATTEND Internal Medicine
DX: R91.1 Solitary pulmonary nodule (principal)
CPT/HCPCS: 82565; 84520; 71260; 36415; Q9967

== ENCOUNTER → 2023-12-09 | Outpatient (CLI) | payer MEDICARE, OTHER ==
--- NOTE | 2023-12-09 17:46 | CA ---
Transthoracic Echo Report Name: Krystle Browne Age: 58 Gender: F : 1965 Exam Date: 12/09/2023 13:11 Exam Location: [place] [facility] Ht (in): 63 Wt (lb): 145 Ordering Physician: Dave Camacho MD Attending/Referring Phys: Francy Mei [facility] [employer] Estrellita Ingram RDCS Procedure CPT: Indications: R01.1 CARDIAC MURMUR, UNSPECIFIED Cardiac Hx: Technical Quality: Fair Contrast 1: Total Dose (mL): Contrast 2: Total Dose (mL): MEASUREMENTS (Male / Female) Normal Values 2D ECHO LVOT Diameter 2.0 cm LV Diastolic Volume MOD BP 110.4 cm??? 67 - 155 / 56 - 104 cm??? LV Systolic Volume MOD BP 41.0 cm??? 22 - 58 / 19 - 49 cm??? LV Ejection Fraction MOD BP 62.8 % >= 55 % LV Cardiac Index MOD BP 2453.9 cm???/min???m??? LV Diastolic Volume MOD 4C 104.7 cm??? LV Systolic Volume MOD 4C 37.0 cm??? LV Ejection Fraction MOD 4C 64.7 % LV Cardiac Index MOD 4C 2395.7 cm???/min???m??? LV Diastolic Length 4C 8.5 cm LV Systolic Length 4C 6.9 cm LV Diastolic Volume MOD 2C 114.1 cm??? LV Systolic Volume MOD 2C 45.5 cm??? LV Ejection Fraction MOD 2C 60.1 % LV Cardiac Index MOD 2C 2428.1 cm???/min???m??? LV Diastolic Length 2C 8.7 cm LV Systolic Length 2C 6.9 cm LA Volume 57.2 cm??? 18 - 58 / 22 - 52 cm??? LA Volume Index 33.2 cm???/m??? 16 - 28 cm???/m??? DOPPLER AV Peak Velocity 149.3 cm/s AV Peak Gradient 8.9 mmHg AV Mean Velocity 91.8 cm/s AV Mean Gradient 3.9 mmHg AV Velocity Time Integral 31.1 cm LVOT Peak Velocity 113.2 cm/s LVOT Peak Gradient 5.1 mmHg LVOT Velocity Time Integral 26.3 cm LVOT Stroke Volume 85.9 cm??? LVOT Stroke Volume Index 50.9 ml/m??? LVOT Cardiac Index 3039.3 cm???/min???m??? AV Area Cont Eq vti 2.8 cm??? AV Area Cont Eq pk 2.5 cm??? MV Area PHT 2.7 cm??? Mitral E Point Velocity 69.6 cm/s Mitral A Point Velocity 83.9 cm/s Mitral E to A Ratio 0.8 MV Deceleration Time 283.0 ms PV Peak Velocity 68.0 cm/s PV Peak Gradient 1.8 mmHg FINDINGS Left Ventricle Left ventricular ejection fraction is estimated at 55 to 60 %. Mildly increased left ventricular diastolic volume. Left ventricular wall thickness normal. No obvious regional wall motion abnormalities. Right Ventricle Normal right ventricular size and function. Unable to estimate the right ventricular systolic pressure. Right Atrium Normal right atrial size. Left Atrium Mildly increased left atrial volume. Mitral Valve Structurally normal mitral valve. No evidence for mitral valve prolapse. No mitral stenosis. Mild mitral regurgitation. Aortic Valve Trileaflet aortic valve. No aortic valve stenosis or regurgitation. Tricuspid Valve Structurally normal tricuspid valve. No tricuspid stenosis. Mild tricuspid regurgitation. Pulmonic Valve Pulmonic valve not well visualized. No pulmonic stenosis. No pulmonic regurgitation. Pericardium No pericardial effusion. Aorta Aortic annulus normal. CONCLUSIONS 1. Normal left ventricular size and systolic function 2. Mild mitral and tricuspid regurgitation Previewed by: Dr. Rodney Richardson MD (Electronically Signed) Final Date: 09 December 2023 17:45
== END | disposition home or self-care (01) ==
LOC: RADECHMAIN 12:43
PROVIDERS: ATTEND Family Medicine
DX: R01.1 Cardiac murmur, unspecified
CPT/HCPCS: 93306

== ENCOUNTER → 2024-01-10 | Outpatient (CLI) | payer MEDICARE, OTHER ==
--- NOTE | 2024-01-10 12:59 | MR ---
EXAMINATION TYPE: MR thoracic spine wo con DATE OF EXAM: 01/10/2024 12:48 PM COMPARISON: None. CLINICAL INDICATION: Female, 58 years old with history of M54.6 PAIN IN THORACIC SPINE, Mid back pain and numbness TECHNIQUE: Multiplanar, multiecho imaging on a 3.0 Sujata magnet is performed through the thoracic spi ne. IV Contrast: mL (None, if empty) FINDINGS: Spinal cord maintains normal signal through its visualized course. Vertebral body alignment is normal. Vertebral body heights are preserved. Disc heights are preserved. Disc hydration levels are preserved. No spinal canal stenosis is evident. Note is made of anterior thecal sac compression through the cervical spine disc levels. MRI of the ce rvical spine be performed as clinically indicated. IMPRESSION: 1. No suspicious acute changes thoracic spine. 2. Multilevel disc bulges Cervical spine on the sagittal color television console monitor images is present. This could be further evaluated with MRI as c linically indicated [facility], , 01/10/2024 12:57 PM
== END | disposition home or self-care (01) ==
LOC: RADMRIMAIN 11:34
PROVIDERS: ATTEND Family Medicine
DX: M51.34 Other intervertebral disc degeneration, thoracic region (principal)
CPT/HCPCS: 72146

== ENCOUNTER → 2024-01-13 | Outpatient (CLI) | payer MEDICARE, OTHER ==
[2024-01-13 11:53] LABS: African American GFR (CKD) >90 (>60 ml/min/1.73 sqM); Blood Urea Nitrogen 20 mg/dL (7-17); Non-African American GFR(CKD) 85 (>60 ml/min/1.73 sqM)
--- NOTE | 2024-01-13 12:27 | CT ---
CT chest with contrast. HISTORY: Solitary pulmonary nodule. COMPARISON: 08/05/2023. TECHNIQUE: Multiple axial images were obtained through the thorax following the uneventful administra tion of nonionic IV contrast material. There is a stable 7.7 mm groundglass nodule in the right lower lobe posteriorly in a subpleural paren chymal location. There are marcie at groundglass densities in the subpleural parenchymal left lower lobe. There is no new or suspicious lung mass or nodule. There is no airspace consolidation. There is no pleural effusion or pneumothorax. The great vessels the chest are normal and is no mediastinal, hilar or axillary adenopathy. Limited scanning through the upper abdomen reveals cholecystectomy but no other abnormality. No focal osseous lesions are seen. IMPRESSION: 1. Stable bilateral nodules and groundglass densities as described above. 2. No new or suspicious lung mass or nodule. 3. No acute cardiopulmonary disease. 4. No adenopathy. [facility], , 01/13/2024 12:25 PM
== END | disposition home or self-care (01) ==
LOC: RADCTMAIN 11:09
PROVIDERS: ATTEND Internal Medicine
DX: R91.1 Solitary pulmonary nodule (principal)
CPT/HCPCS: 82565; 84520; 71260; 36415; Q9967

== ENCOUNTER → 2024-02-16 | Outpatient (CLI) | payer MEDICARE, OTHER ==
--- NOTE | 2024-02-16 13:59 | MR ---
EXAMINATION TYPE: MR cervical spine wo con DATE OF EXAM: 02/16/2024 12:24 PM COMPARISON: None. CLINICAL INDICATION: Female, 58 years old with history of M54.2 CERVICALGIA, Pain in left arm and fin gers TECHNIQUE: Multiplanar MultiSpin echo imaging of the cervical spine was performed. FINDINGS: C2-C3: No evidence for degenerative disc disease. No disc bulge/herniation or protrusion. No Canal stenosis. Foramina are patent bilaterally. C3-C4: Mild disc desiccation with left paracentral disc bulge or tiny protrusion. No definite cord co ntact or central stenosis. Foramina are patent bilaterally. C4-C5: Moderate disc desiccation with posterior disc bulge. Partially encapsulating spur resulting in effacement of the ventral thecal sac with mild to moderate central stenosis. Bilateral neural forami nal encroachment. C5-C6: Moderate disc desiccation with posterior disc bulge. Partially encapsulating spur resulting in effacement of the ventral thecal sac with mild to moderate central stenosis. Bilateral neural forami nal encroachment. C6-C7: Moderate disc desiccation. Left paracentral subligamentous broad-based disc herniation effaces the ventral thecal sac. There is constriction of the thecal sac with moderate central stenosis. Fora dinesh appear to be patent at this time. C7-T1: No evidence for degenerative disc disease. No disc bulge/herniation or protrusion. No Canal stenosis. Foramina are patent bilaterally. Cervical segments are intact. There is normal alignment. Cervical spinal cord is of normal signal. Craniovertebral junction relationships are within normal limits. Ventral spondylosis. IMPRESSION: 1. Multilevel degenerative disc disease with multilevel central stenosis as outlined above. Left para central disc herniation at C6-C7. [facility], , 02/16/2024 1:56 PM
== END | disposition home or self-care (01) ==
LOC: RADMRIMAIN 11:45
PROVIDERS: ATTEND Family Medicine
DX: M48.02 Spinal stenosis, cervical region (principal); M50.30 Other cervical disc degeneration, unspecified cervical region; M50.223 Other cervical disc displacement at C6-C7 level
CPT/HCPCS: 72141